=== PATIENT | female | born 1950 | race Caucasian/White ===

== ENCOUNTER → 2016-09-04 | Day surgery (SDC) | payer OTHER, BC ==
[2016-08-27 12:03] VITALS: BMI 33.0
[~2016-09-04] VITALS: Ht 162.6 cm; Wt 88.6 kg
[~2016-09-04] MED LIST: CALC500T83 PO; CHOL1000 PO; ESCI1TAB9 PO; GABA-112 PO; HYDR-5688 PO; LIDOCAINE HCL 2% 2 ML VIAL (20MG/ML) ONE; MIDAZOLAM HCL 1 MG/ML 2ML VIAL ONE; MULT-506 PO; MULT-859 PO; ONDANSETRON INJ 2 MG/ML 2 ML VIAL ONE; PROPOFOL IV EMULSION 10 MG/ML 20 ML VIAL IV ONE
[2016-09-04 14:56] VITALS: Ht 162.6 cm; Wt 88.6 kg
[2016-09-04 15:03] VITALS: TEMP 36.6
--- NOTE | 2016-09-04 15:55 | Endo History and Physical ---
History & Physical Date of Service: Sep 04, 2016. Chief Complaint: Hx colon Ca Referring Physician: Dr. Quinn Agrawal History of Present Illness 66 yo CF who presents for colonoscopy secondary to history of colon cancer. Past Medical History Anxiety, Cancer Past Surgical History Hx Cardiac Surgery: No Hx Internal Defibrillator: No Hx Pacemaker: No Hx Abdominal Surgery: No Hx of Implantable Prosthesis: No Hx Post-Op Nausea and Vomiting: No Hx Cancer Surgery: Yes (COLON TUMOR REMOVAL AND LYMPH NODE REMOVAL) Hx Thoracic Surgery: No Hx Orthopedic: Yes (RT FOOT SURGERY WITH PLATES AND SCREWS) Hx Urinary Tract Surgery: No Family History Polyp, IBD Social History Smoking Status: Never Smoker Hx Substance Use: No Hx Alcohol Use: No Allergies Coded Allergies: Adhesives (Verified Allergy, Unknown, REDNESS WITH TAPE, 09/04/16) NO KNOWN DRUG ALLERGIES (Verified Allergy, Unknown, NONE, 09/04/16) Current Medications Reported Home Medications Medications Dose Route/Sig Max Daily Dose Days Date Category Hair/Skin/Nails/Biotin (Multiple Vitamins W/ Minerals) 1 Tab Tab 1 Tab PO QPM 08/27/16 Reported Vitamin D3 (Cholecalciferol) 1,000 Unit Tab 1 Tab PO QPM 08/27/16 Reported Calcium 500 Mg Tab 1 Tab PO QPM 08/27/16 Reported Neurontin (Gabapentin) 100 Mg Cap 100 Mg PO HS 08/27/16 Reported Multivitamin (Multivitamins) Tab 1 Tab PO QPM 09/11/15 Reported Lexapro (Escitalopram Oxalate) 10 Mg Tab 5 Mg PO QAM 07/20/15 Reported Vital Signs Weight (Kilograms): 88.64 Height (Feet): 5 Height (Inches): 4 Date Time Temp Pulse Resp B/P Pulse Ox O2 Delivery O2 Flow Rate FiO2 09/04/16 15:03 36.6 86 18 137/74 95 Room Air Physical Exam General Appearance: WD/WN, no apparent distress Respiratory/Chest: Auscultation: breath sounds normal Cardiovascular: Heart Auscultation: RRR Abdomen: Bowel Sounds: normal Inspection & Palpation: soft, non-distended, no tenderness, guarding & rebound Assessment and Plan Assessment: 66 yo CF who presents for colonoscopy secondary to history of colon cancer. Plan: Proceed with colonoscopy.
--- NOTE | 2016-09-04 16:19 | GI REPORT ---
Procedure Date: 09/04/2016 3:53 PM Procedure: Colonoscopy Indications: High risk colon cancer surveillance: Personal history of colon cancer Medicines: Monitored Anesthesia Care Complications: No immediate complications. Estimated Blood Loss: Estimated blood loss: none. Procedure: Pre-Anesthesia Assessment: - Prior to the procedure, a History and Physical was performed, and patient medications and allergies were reviewed. The patient's tolerance of previous anesthesia was also reviewed. The risks and benefits of the procedure and the sedation options and risks were discussed with the patient. All questions were answered, and informed consent was obtained. Prior Anticoagulants: The patient has taken no previous anticoagulant or antiplatelet agents. ASA Grade Assessment: II - A patient with mild systemic disease. After reviewing the risks and benefits, the patient was deemed in satisfactory condition to undergo the procedure. After I obtained informed consent, the scope was passed under direct vision. Throughout the procedure, the patient's blood pressure, pulse, and oxygen saturations were monitored continuously. The scope was introduced through the anus and advanced to the terminal ileum. The colonoscopy was performed without difficulty. The patient tolerated the procedure well. The quality of the bowel preparation was good. The terminal ileum, ileocecal valve, appendiceal orifice, and rectum were photographed. Findings: Scattered small-mouthed diverticula were found in the entire colon. Non-bleeding internal hemorrhoids were found during retroflexion. The hemorrhoids were small. Impression: - Diverticulosis in the entire examined colon. - Non-bleeding internal hemorrhoids. - No specimens collected. Recommendation: - Resume previous diet. - Continue present medications. - Repeat colonoscopy in 3 years for surveillance. - Return to primary care physician as previously scheduled. Jalen Tobin, 09/04/2016 4:17:45 PM This report has been signed electronically. Note Initiated On: 09/04/2016 3:53 PM
--- NOTE | 2016-09-04 16:19 | Discharge Instructions ---
Endoscopy Patient Instructions Date / Procedure(s) Performed Sep 04, 2016. Colonoscopy Allergy Information Coded Allergies: Adhesives (Verified Allergy, Unknown, REDNESS WITH TAPE, 09/04/16) NO KNOWN DRUG ALLERGIES (Verified Allergy, Unknown, NONE, 09/04/16) Discharge Date / Findings Sep 04, 2016. Diverticulosis Internal hemorrhoids Medication Instructions OK to resume all medications today as prescribed. Reported Home Medications Medications Dose Route/Sig Max Daily Dose Days Date Category Hair/Skin/Nails/Biotin (Multiple Vitamins W/ Minerals) 1 Tab Tab 1 Tab PO QPM 08/27/16 Reported Vitamin D3 (Cholecalciferol) 1,000 Unit Tab 1 Tab PO QPM 08/27/16 Reported Calcium 500 Mg Tab 1 Tab PO QPM 08/27/16 Reported Neurontin (Gabapentin) 100 Mg Cap 100 Mg PO HS 08/27/16 Reported Multivitamin (Multivitamins) Tab 1 Tab PO QPM 09/11/15 Reported Lexapro (Escitalopram Oxalate) 10 Mg Tab 5 Mg PO QAM 07/20/15 Reported Provider Instructions Activity Restrictions - No exercising or heavy lifting for 24 hours. - Do not drink alcohol the day of the procedure. - Do not drive a car or operate machinery until the day after the procedure. - Do not make any important decisions or sign important papers in 24 hours after the procedure. Following Day: - Return to full activity which may include returning to work/school. Diet Start your diet with liquids and light foods (jello, soup, juice, toast). Then eat your usual diet if not nauseated. Treatment For Common After Affects For mild abdominal pain, bloating, or excessive gas: - Rest - Eat lightly - Lie on right side Follow-Up Information Follow-up with Dr. Quinn Agrawal as scheduled Anesthesia Information What You Should Know You have had a procedure that required some medicine to reduce anxiety and discomfort. This treatment is called moderate sedation. After receiving the treatment, you may be sleepy, but you will be able to breathe on your own. The effects of the treatment may last for several hours. Follow these instructions along with Activity/Diet recommendations noted above: * Do NOT do anything where dizziness or clumsiness would be dangerous. * Rest quietly at home today, then you can be up and about tomorrow. * Have a responsible person stay with you the rest of today. * You may have had an I.V. today. If so, you may take the dressing off later today. Recommendations Call your doctor if: * Trouble breathing * Continuous vomiting for more than 24 hours * Temperature above 101 degrees * Severe abdominal pain or bloating * Pain not relieved by pain medicine ordered * There is increased drainage or redness from any incision * A large amount of rectal bleeding greater than 2-3 tablespoons. (If you had a polyp/s removed or have hemorrhoids, a small amount of blood - from the rectum is to be expected.) * You have any unanswered questions or concerns. IN THE EVENT OF A SERIOUS EMERGENCY, GO TO THE NEAREST EMERGENCY ROOM Your discharge instructions were prepared by provider Jalen Tobin. Patient Instructions Signature Page Chiquita Nix Patient (or Guardian) Signature/Date: I have read and understand the instructions given to me by my caregivers. Caregiver/RN/Doctor Signature/Date: The above-named patient and/or guardian has received patient instructions on this date. + Original Patient Signature Page (only) stays with chart. Please make copy for patient.
[2016-09-04 16:45] VITALS: BP 138/76; PULSE 86; O2SAT 93
--- NOTE | 2016-09-04 17:01 | Anesthesiology Progress Note ---
Anesthesia Post Op Note Date & Time Sep 04, 2016 at 17:00 Vital Signs Pain Intensity: 0 Vital Signs Past 12 Hours Date Time Temp Pulse Resp B/P Pulse Ox O2 Delivery O2 Flow Rate FiO2 09/04/16 16:45 86 16 138/76 93 Room Air 09/04/16 16:30 93 16 132/75 94 Room Air 09/04/16 16:15 104 16 116/68 93 Room Air 09/04/16 15:03 36.6 86 18 137/74 95 Room Air Notes Mental Status: alert / awake / arousable, participated in evaluation Pt Amnestic to Procedure: Yes Nausea / Vomiting: adequately controlled Pain: adequately controlled Airway Patency, RR, SpO2: stable & adequate BP & HR: stable & adequate Hydration State: stable & adequate Anesthetic Complications: no major complications apparent
== END | disposition home or self-care (01) ==
LOC: C.GI 14:44
PROVIDERS: ATTEND Internal Medicine
DX: Z12.11 Encounter for screening for malignant neoplasm of colon (principal); Z85.038 Personal history of other malignant neoplasm of large intestine; K57.90 Diverticulosis of intestine, part unspecified, without perforation or abscess without bleeding; K64.8 Other hemorrhoids; Z98.890 Other specified postprocedural states; Z68.33 Body mass index [BMI] 33.0-33.9, adult; Z83.71 Family history of colonic polyps

== ENCOUNTER → 2016-09-10 | Day surgery (SDC) | payer OTHER, BC ==
[2016-08-27 12:13] VITALS: Ht 162.6 cm; Wt 88.6 kg
[~2016-09-10] VITALS: Ht 162.6 cm; Wt 88.6 kg
[~2016-09-10] MED LIST changes: +ATROPINE SULFATE 0.1 MG/ML 5ML SYR IV PRN; +CEFAZOLIN 2000 MG/60 ML D5W IV SCH; +EpHEDrine SULFATE INJ 50 MG/ML AMP IV PRN; +FENTANYL CITRATE INJ 50 MCG/1 ML 2 ML VIAL IV PRN; +FENTANYL CITRATE INJ 50 MCG/1 ML 2 ML VIAL ONE; +HYDROCODONE/ACETAMOPHEN 5/325MG TAB PO PRN; +LACTATED RINGER'S 1000ML 1,000 ML IV SCH; +LACTATED RINGER'S 1000ML 500 ML IV ONE; +LIDOCAINE HCL 1% 20 ML VIAL ONE; +ONDANSETRON INJ 2 MG/ML 2 ML VIAL IV PRN; -ONDANSETRON INJ 2 MG/ML 2 ML VIAL ONE; +SODIUM CHLORIDE 0.9% 1000ML 1,000 ML IV SCH
--- NOTE | 2016-09-10 12:06 | [facility] Operative Report ---
Operative Report Operative Date Sep 10, 2016. Pre-Operative Diagnosis History of Colon Cancer Post-Operative Diagnosis same Procedure(s) Performed port removal Surgeon Dr Agrawal Global Sales Director Surgeon(s) None Estimated Blood Loss 5ml Findings port Specimens A: Explanted A-Port Anesthesia local/ sedation Complication(s) None Disposition Surgical ICU I attest to the content of the Intraoperative Record and any orders documented therein. Any exceptions are noted below.
[2016-09-10 12:10] VITALS: TEMP 36.7
--- NOTE | 2016-09-10 12:12 | Discharge Instructions-SurgCtr ---
Discharge Instructions Visit Reason for Visit: History Of Colon Cancer, Pre-Op Z01.810 Discharge Discharge Diagnosis / Problem: history of colon cancer , port Discharge Goals Goal(s): Decrease discomfort, Improve function, Improve disease control Activity Recommendations Activity Limitations: as noted below Lifting Limitations: gradually increase as tolerated Exercise/Sports Limitations: until after follow-up appointment May Resume Sexual Activity: when tolerated Shower/Bathe: tomorrow Driving or Machine Use: resume 1 day after discharge SPECIAL CARE INSTRUCTIONS: * Cover incisions and change daily for comfort/drainage. * May use ibuprofen for pain as tolerated. * Expect some swelling and bruising. Call your doctor if: * Temperature above 101 degrees * Pain not relieved by pain medicine ordered * There is increased drainage or redness from any incision * You have any unanswered questions or concerns [phone]. FOLLOW UP VISIT: If not already scheduled, please call the office for a follow-up visit. for 2 weeks- [facility] OFFICE PHONE NUMBER: Dr. Agrawal Office Anesthesia . Post Anesthesia Instructions: If you have had General Anesthesia or IV Sedation: * Do not drive today. * Resume driving when surgeon permits. * Do not make important decisions or sign legal documents today. * Call surgeon for: 1. Temperature elevations greater than 101 degrees F. 2. Uncontrollable pain. 3. Excessive bleeding. 4. Persistent nausea and vomiting. 5. Medication intolerance (nausea, vomiting or rash). * For nausea and vomiting use only clear liquids such as: tea, soda, bouillon until nausea subsides, then gradually increase diet as tolerated. * If you have any concerns or questions, call your surgeon's office. If physician is unavailable and it is an emergency, call 911 or go to the nearest emergency room. . Diet Recommendations Home Diet: resume previous diet Procedures Procedures Performed: Removal Of A-port Pending Studies Studies pending at discharge: no Medical Emergencies . Who to Call and When: Medical Emergencies: If at any time you feel your situation is an emergency, please call 911 immediately. . Non-Emergent Contact Non-Emergency issues call your: Surgeon . . "Provider Documentation" section prepared by Brady Agrawal.
--- NOTE | 2016-09-10 12:21 | Anesthesia Progress Nt - [facility] ---
Anesthesia Post Op Note Date & Time Sep 10, 2016 at 12:20 Vital Signs Pain Intensity: 0 Vital Signs Past 12 Hours Date Time Temp Pulse Resp B/P Pulse Ox O2 Delivery O2 Flow Rate FiO2 09/10/16 12:10 36.7 86 14 103/69 92 Room Air 09/10/16 10:37 37.3 88 16 153/76 97 Room Air Notes Mental Status: alert / awake / arousable, participated in evaluation Pt Amnestic to Procedure: Yes Nausea / Vomiting: adequately controlled Pain: adequately controlled Airway Patency, RR, SpO2: stable & adequate BP & HR: stable & adequate Hydration State: stable & adequate Anesthetic Complications: no major complications apparent
[2016-09-10 12:31] VITALS: BP 127/85; PULSE 85; O2SAT 94
--- NOTE | 2016-09-10 13:16 | OPERATIVE REPORT ---
DATE OF OPERATION: 09/10/2016 NAME OF OPERATION: Port removal. PREOPERATIVE DIAGNOSIS: Access port. POSTOPERATIVE DIAGNOSIS: Same. STAFF SURGEON: Dr. Agrawal. ANESTHESIA: 1% plain lidocaine with sedation. DESCRIPTION OF PROCEDURE: The patient was brought in the operating room and placed on the operating table in supine position. Her left chest was prepped and draped in usual fashion. Using 1% plain lidocaine, skin and subcutaneous tissue were anesthetized. Incision made carrying dissection down relatively deep, identifying the port, dissecting it from the pocket and then removing the catheter, oversewing the tunnel using 2-0 chromic catgut suture then the deep tissue reapproximated using 2-0 plain catgut suture, then the skin reapproximated using 4-0 nylon suture. The patient was transferred to recovery room in stable condition. I attest to the content of the Intraoperative Record and any orders documented therein. Any exceptio ns are noted below.
== END | disposition home or self-care (01) ==
LOC: X.SURG 10:28
PROVIDERS: ATTEND Surgery
DX: Z45.2 Encounter for adjustment and management of vascular access device (principal); I82.621 Acute embolism and thrombosis of deep veins of right upper extremity; E78.5 Hyperlipidemia, unspecified; K58.9 Irritable bowel syndrome, unspecified; D25.9 Leiomyoma of uterus, unspecified; R39.9 Unspecified symptoms and signs involving the genitourinary system; E55.9 Vitamin D deficiency, unspecified; Z98.890 Other specified postprocedural states

== ENCOUNTER → 2016-10-10 | Outpatient (CLI) | payer OTHER, BC ==
[~2016-10-10] MED LIST changes: -ATROPINE SULFATE 0.1 MG/ML 5ML SYR IV PRN; -CEFAZOLIN 2000 MG/60 ML D5W IV SCH; -EpHEDrine SULFATE INJ 50 MG/ML AMP IV PRN; -FENTANYL CITRATE INJ 50 MCG/1 ML 2 ML VIAL IV PRN; -FENTANYL CITRATE INJ 50 MCG/1 ML 2 ML VIAL ONE; -HYDROCODONE/ACETAMOPHEN 5/325MG TAB PO PRN; -LACTATED RINGER'S 1000ML 1,000 ML IV SCH; -LACTATED RINGER'S 1000ML 500 ML IV ONE; -LIDOCAINE HCL 1% 20 ML VIAL ONE; -LIDOCAINE HCL 2% 2 ML VIAL (20MG/ML) ONE; -MIDAZOLAM HCL 1 MG/ML 2ML VIAL ONE; -ONDANSETRON INJ 2 MG/ML 2 ML VIAL IV PRN; -PROPOFOL IV EMULSION 10 MG/ML 20 ML VIAL IV ONE; -SODIUM CHLORIDE 0.9% 1000ML 1,000 ML IV SCH
--- NOTE | 2016-10-10 13:25 | MAMMOGRAPHY REPORT ---
BILATERAL DIGITAL SCREENING MAMMOGRAM WITH CAD: 10/10/2016 CLINICAL HISTORY: Routine screening. Patient has no complaints. TECHNIQUE: Current study was also evaluated with a Computer Aided Detection (CAD) system. Bilatera l CC and MLO views were obtained. COMPARISON: Comparison is made to exams dated: 10/09/2015 mammogram, 10/06/2013 mammogram, 10/07/2014 mammogram, 10/05/2012 mammogram, 10/04/2011 mammogram, and 10/03/2010 mammogram - [facility]. BREAST COMPOSITION: The tissue of both breasts is heterogeneously dense, which may obscure small ma sses. FINDINGS: No suspicious masses, calcifications, or areas of architectural distortion are noted in e ither breast. There has been no significant interval change compared to prior exams. IMPRESSION: ACR BI-RADS CATEGORY 1: NEGATIVE There is no mammographic evidence of malignancy. A 1 year screening mammogram is recommended. The p atient will receive written notification of the results. Approximately 10% of breast cancers are not detected with mammography. A negative mammographic repor t should not delay biopsy if a clinically suggestive mass is present. Heather Del Real M.D. /:10/10/2016 12:41:14 Automatic Glove Turner And Former: Kristina MONDRAGON(R)(M), [facility] letter sent: Normal 1/2 BI-RADS Code: ACR BI-RADS Category 1: Negative
== END | disposition home or self-care (01) ==
LOC: C.MAMM 10:01
PROVIDERS: ATTEND Obstetrics & Gynecology
DX: Z12.31 Encounter for screening mammogram for malignant neoplasm of breast (principal)

== ENCOUNTER → 2017-02-12 | Outpatient (CLI) | payer OTHER, BC ==
[~2017-02-12] MED LIST changes: +OPTIRAY 320 IV PRN
--- NOTE | 2017-02-12 16:12 | DIAGNOSTIC IMAGING REPORT ---
CT SCAN OF THE CHEST, ABDOMEN, AND PELVIS WITH IV CONTRAST CLINICAL HISTORY: Colon cancer. COMPARISON STUDY: Chest CT scans dated 04/17/2015 and 08/05/2016. Abdominal CT dated 06/28/2016. TECHNIQUE: Following the IV administration of 119 of Optiray 320, CT scan of the chest, abdomen, and pelvis was performed from the thoracic inlet to the proximal femora. Images are reviewed in the axial, sagittal, and coronal planes. IV contrast was administered without complication. Automated dose control exposure was utilized. CT DOSE: 1483.59 mGy.cm FINDINGS: CHEST: Thyroid: Imaged portions of the thyroid gland are normal in size and attenuation. Thoracic aorta: There is mild atherosclerotic calcification of the thoracic aorta, which is normal in caliber and demonstrates standard 3-vessel arch anatomy. No dissection is seen. Pulmonary vasculature: The pulmonary trunk is dilated, measuring 3.7 cm in diameter. This suggests pulmonary artery hypertension. There are no filling defects identified in the central pulmonary vessels to indicate pulmonary was. Note that this examination was not protocoled for evaluation of the pulmonary arteries. Heart: The heart is normal in size and configuration, and without pericardial effusion. Lungs and pleural spaces: There is no airspace consolidation or pleural effusion. The trachea and central airways are clear. There is an 11 mm pleural-based nodule in the superior segment of the left lower lobe seen on image #87. This has not appreciably changed dating back to 04/27/2015. No new pulmonary lesion is identified. Mediastinum: There is no mediastinal lymphadenopathy. Sabrina: Clear. Axillae: There is no axillary lymphadenopathy. Bony thorax: The skeletal structures are osteopenic. Degenerative change is noted throughout the thoracic spine. No lytic or blastic lesions are identified. ABDOMEN AND PELVIS: Liver: The contrast-enhanced liver is enlarged, measuring 20 cm in length. The liver demonstrates diffusely diminished attenuation consistent with hepatic steatosis. There is no intrahepatic or ductal dilatation. The hepatic veins and portal veins are patent. Gallbladder: Unremarkable. Spleen: Normal in size and attenuation. Pancreas: Unremarkable. Adrenal glands: Unremarkable. Kidneys: The contrast enhanced kidneys are normal in size and without hydronephrosis. The kidneys enhance symmetrically. There is a 3 mm nonobstructing calculus in the left lower pole. A 1.6 cm cyst arises from the interpolar left kidney. Additional subcentimeter cortical hypodensities also likely represent cysts but are too small for definitive characterization. Abdominal vasculature: The abdominal aorta is normal in course and caliber noting mild to moderate atherosclerotic calcification. Bowel: There are postoperative changes from left-sided colonic resection below the splenic flexure with colocolonic anastomosis. No bowel obstruction is seen. There is moderate sigmoid diverticulosis without CT evidence of acute diverticulitis. The appendix is well-visualized and normal. Peritoneum: There is no intraperitoneal free air or abdominal ascites. Lymphadenopathy: None. Pelvic viscera: There are large and partially calcified uterine masses, typical in appearance for fibroids. The bladder is decompressed and grossly unremarkable. No adnexal lesion is seen. Skeletal structures: The skeletal structures are osteopenic. There is mild lumbosacral spondylosis. No lytic or blastic lesions are seen. IMPRESSION: 1. There is no evidence of metastatic disease in the chest, abdomen, or pelvis. 2. There are postoperative changes from partial left colon resection with colocolonic anastomosis. No bowel obstruction is seen. 3. There is unchanged appearance of an 11 mm nodule in the superior segment of the left lower lobe. This as not significantly changed dating back to 04/27/2015 and the appearance is not typical for metastatic disease. A slow-growing neoplasm such as carcinoid tumor remains within the differential. Consider thoracic surgical consultation. 4. Moderate sigmoid diverticulosis without CT evidence of acute diverticulitis. 5. Hepatomegaly and hepatic steatosis. 6. There is no airspace consolidation or pleural effusion. 7. Small nonobstructing left renal calculus. 8. Fibroid uterus. 9. Additional findings as above. Electronically signed by: Carlos Arenas M.D. 02/12/2017 4:11 PM Dictated Date/Time: 02/12/2017 4:01 PM
== END | disposition home or self-care (01) ==
LOC: C.CTS 15:31
PROVIDERS: ATTEND Internal Medicine Hematology & Oncology
DX: C18.5 Malignant neoplasm of splenic flexure (principal); R91.1 Solitary pulmonary nodule; K57.30 Diverticulosis of large intestine without perforation or abscess without bleeding; R16.0 Hepatomegaly, not elsewhere classified; K76.0 Fatty (change of) liver, not elsewhere classified; N20.0 Calculus of kidney; D25.9 Leiomyoma of uterus, unspecified

== ENCOUNTER → 2017-04-25 | Outpatient (CLI) | payer OTHER, BC ==
[~2017-04-25] MED LIST changes: -HYDR-5688 PO; -OPTIRAY 320 IV PRN
[2017-04-25 17:12] LABS: URINE APPEARANCE TURBID (CLEAR); URINE BILIRUBIN NEG (NEG); URINE COLOR YELLOW; URINE EPITHELIAL CELL AUTO 0-5 /lpf (0-5); URINE NITRITE NEG (NEG); URINE SPECIFIC GRAVITY 1.031 (1.000-1.030); UROBILINOGEN NEG (NEG)
[2017-04-25 17:13] LABS: MANUAL MICROSCOPIC REQUIRED? NO; REVIEW REQ? NO
== END | disposition home or self-care (01) ==
LOC: C.LABBC 14:55
PROVIDERS: ATTEND Physician Assistant Medical
DX: R39.9 Unspecified symptoms and signs involving the genitourinary system (principal)

== ENCOUNTER → 2017-06-04 | Outpatient (CLI) | payer OTHER, BC ==
--- NOTE | 2017-06-04 12:32 | DIAGNOSTIC IMAGING REPORT ---
CHEST 2 VIEWS ROUTINE CLINICAL HISTORY: R06.02 Mild shortness of [id number] dyspnea COMPARISON STUDY: 08/05/2016 CT chest 02/12/2017 FINDINGS: Unchanging 9 mm nodule left midlung. Lungs otherwise are clear. Diaphragms are smooth. Costophrenic angles are sharp. IMPRESSION: Chronic change. No acute process. The above report was generated using voice recognition software. It may contain grammatical, syntax or spelling errors. Electronically signed by: Dilip Gilmore M.D. 06/04/2017 12:30 PM Dictated Date/Time: 06/04/2017 12:28 PM
== END | disposition home or self-care (01) ==
LOC: C.RAD1850 12:04
PROVIDERS: ATTEND Nurse Practitioner Adult Health
DX: R06.02 Shortness of breath (principal)

== ENCOUNTER → 2017-08-25 | Outpatient (CLI) | payer OTHER, BC ==
[2017-08-25 12:49] LABS: ALBUMIN 3.9 gm/dl (3.4-5.0); ALT/SGPT 30 U/L (12-78); AST/SGOT 17 U/L (15-37); BLOOD UREA NITROGEN 11 mg/dl (7-18); CARBON DIOXIDE 26 mmol/L (21-32); CREATININE 0.72 mg/dl (0.60-1.20); GLUCOSE 123 mg/dl (70-99); POTASSIUM 3.7 mmol/L (3.5-5.1); SODIUM 138 mmol/L (136-145)
[2017-08-25 13:00] LABS: ALKALINE PHOSPHATASE 86 U/L (45-117); BASO % 0.4 %; BASO ABS # 0.03 K/uL (0-0.2); CHOLESTEROL 223 mg/dl (0-200); EOS % 4.3 %; EOS ABS # 0.29 K/uL (0-0.5); HEMATOCRIT 41.5 % (37-47); HEMOGLOBIN 13.9 g/dL (12.0-16.0); IG# 0.01 K/uL (0.00-0.02); LDL CHOLESTEROL CALCULATED 126 mg/dl; LYMPH % 40.7 %; LYMPH ABS # 2.73 K/uL (1.2-3.4); MEAN CELL VOLUME 88.5 fL (80-100); MEAN CORPUSCULAR HEMOGLOBIN 29.6 pg (25-34); MEAN CORPUSCULAR HGB CONC 33.5 g/dl (32-36); MEAN PLATELET VOLUME 10.8 fL (7.4-10.4); MONO ABS # 0.67 K/uL (0.11-0.59); NEUT % 44.5 %; NEUT ABS # 2.97 K/uL (1.4-6.5); PLATELET COUNT 217 K/uL (130-400); RED CELL DISTRIBUTION WIDTH CV 12.8 % (11.5-14.5); RED CELL DISTRIBUTION WIDTH SD 41.1 fL (36.4-46.3); TOTAL PROTEIN 7.2 gm/dl (6.4-8.2)
[2017-08-25 13:22] LABS: CARCINOEMBRYONIC ANTIGEN 2.2 ng/ml (0-2.5)
== END | disposition home or self-care (01) ==
LOC: C.LAB1850 11:09
PROVIDERS: ATTEND Internal Medicine Geriatric Medicine
DX: R73.9 Hyperglycemia, unspecified (principal); Z85.038 Personal history of other malignant neoplasm of large intestine; R06.09 Other forms of dyspnea; M06.4 Inflammatory polyarthropathy; G62.9 Polyneuropathy, unspecified; E78.5 Hyperlipidemia, unspecified

== ENCOUNTER → 2017-10-27 | Outpatient (CLI) | payer OTHER, BC ==
--- NOTE | 2017-10-31 11:58 | POLYSOMNOGRAPH REPORT ---
CLINICAL DATA: A 67-year-old female with a BMI of [address] Jed Agrawal with history of daytime somnolence and snoring. Her [place] sleepiness score was 12/24. On the evening of 10/27/2017, a home sleep apnea test was performed using a [employer] type 3 monitor. RECORDING RESULTS: Total recording time was 10 hours. The patient's monitoring time and estimated sleep time was 9.2 hours. RESPIRATORY DATA: Mild sleep apnea was documented. The GIFTY was 9. There were 12 obstructive, 1 mixed, and 1 central apneic episode. There were 69 hypopneic episodes. The longest respiratory event was 56 seconds. OXIMETRY DATA: Nocturnal hypoxemia was seen. Oxygen celeste was 62%. Mean saturation was 89%. Time below 89% was 104 minutes. HEART RATE DATA: Heart rates ranged from 42-77 beats per minute. SNORING DATA: Snoring was recorded throughout the night. IMPRESSION: Mild sleep apnea/hypopnea with an GIFTY of 9 with significant nocturnal hypoxemia with an oxygen celeste of 62%. RECOMMENDATIONS: The patient may benefit from use of an oral appliance or repeat sleep study with CPAP. Sleep medicine consultation may be of benefit. Clinical correlation is needed. [facility]
== END | disposition home or self-care (01) ==
LOC: C.NEUR 09:11
PROVIDERS: ATTEND Internal Medicine Geriatric Medicine
DX: R40.0 Somnolence (principal); R53.83 Other fatigue; R09.02 Hypoxemia; Z68.35 Body mass index [BMI] 35.0-35.9, adult; R06.09 Other forms of dyspnea; Z85.038 Personal history of other malignant neoplasm of large intestine; R73.9 Hyperglycemia, unspecified; G62.9 Polyneuropathy, unspecified; M06.4 Inflammatory polyarthropathy; G47.00 Insomnia, unspecified

== ENCOUNTER → 2017-10-28 | Outpatient (CLI) | payer OTHER, BC ==
--- NOTE | 2017-10-28 14:58 | MAMMOGRAPHY REPORT ---
BILATERAL DIGITAL SCREENING MAMMOGRAM TOMOSYNTHESIS WITH CAD: 10/28/2017 CLINICAL HISTORY: Routine screening. Patient has no complaints. TECHNIQUE: Breast tomosynthesis in addition to standard 2D mammography was performed. Current study was also evaluated with a Computer Aided Detection (CAD) system. COMPARISON: Comparison is made to exams dated: 10/10/2016 mammogram, 10/09/2015 mammogram, 10/07/2014 ma mmogram, 10/06/2013 mammogram, 10/05/2012 mammogram, and 10/04/2011 mammogram - [facility]ter. BREAST COMPOSITION: The tissue of both breasts is heterogeneously dense, which may obscure small mas ses. FINDINGS: There is a new small 5 mm spiculated mass with associated faint calcifications seen within the left 12:00 breast, for which spot magnification views and breast ultrasound are recommended for f urther evaluation. The remainder of both breasts are stable compared to prior exams, without suspicious masses, calcific ations, or areas of architectural distortion noted. Other scattered bilateral benign-appearing calci fications are not significantly changed. Asymmetry seen within the right upper outer quadrant is sta ble compared to multiple prior exams. IMPRESSION: ACR BI-RADS CATEGORY 0: INCOMPLETE EVALUATION: NEED ADDITIONAL IMAGING EVALUATION Left breast mass and associated calcifications, for which additional imaging evaluation is recommende d. The patient will be called to schedule an appointment. Approximately 10% of breast cancers are not detected with mammography. A negative mammographic report should not delay biopsy if a clinically suggestive mass is present. Heather Del Real M.D. /:10/28/2017 12:31:42 Lumber Loader: Rhona DEVRIES)(Whitney), [facility] letter sent: Addl Imaging 0 BI-RADS Code: ACR BI-RADS Category 0: Incomplete Evaluation: Need Additional Imaging Evaluation
== END | disposition home or self-care (01) ==
LOC: C.MAMM 11:44
PROVIDERS: ATTEND Obstetrics & Gynecology
DX: Z12.31 Encounter for screening mammogram for malignant neoplasm of breast (principal); R92.1 Mammographic calcification found on diagnostic imaging of breast

== ENCOUNTER → 2017-10-31 | Outpatient (CLI) | payer OTHER, BC ==
--- NOTE | 2017-11-03 12:44 | MAMMOGRAPHY REPORT ---
UNILATERAL LEFT DIGITAL DIAGNOSTIC MAMMOGRAM AND TARGETED LEFT ULTRASOUND: 10/31/2017 CLINICAL HISTORY: Callback from screening mammogram for left breast mass and calcifications. TECHNIQUE: Spot magnification left CC and ML views were obtained. COMPARISON: Comparison is made to exams dated: 10/31/2017 ultrasound, 10/28/2017 mammogram, 10/10/2016 m ammogram, 10/09/2015 mammogram, 10/07/2014 mammogram, and 10/06/2013 mammogram - [facility]. BREAST COMPOSITION: There are scattered areas of fibroglandular density in the left breast. FINDINGS: Spot magnification views demonstrate a spiculated 5 mm mass within the left superior breast at approximately 12:00. A few faint pleomorphic calcifications are seen within the mass as well as extending approximately 2.2 cm anterior to the mass in a linear distribution. The total extent of th e findings measures 2.8 x 0.7 cm. Targeted ultrasound was performed of the area of the mammographic mass in the left superior breast. In the left breast at approximately 11:00, 9 cm from the nipple, there is a subtle ill-defined hypoec hoic non-circumscribed 3 x 4 x 4 mm mass with associated architectural distortion seen during real-ti me imaging. This corresponds with the mammographic mass and is highly suspicious for malignancy. Re commend ultrasound-guided core needle biopsy for further evaluation. IMPRESSION: ACR BI-RADS CATEGORY 5: HIGHLY SUGGESTIVE OF MALIGNANCY, TARGETED ULTRASOUND ACR BI-RADS CATEGORY 5: HIGHLY SUGGESTIVE OF MALIGNANCY Hypoechoic 4 mm mass in the left 11:00 breast on ultrasound, which corresponds with a new spiculated mass and associated calcifications seen mammographically. Pleomorphic calcifications are also seen e xtending anterior to the mass, with total extent of the finding measuring 2.8 cm. Findings are highl y suspicious and ultrasound-guided core needle biopsy with specimen radiography is recommended for fu rther evaluation. A phone call was made to the physician's office to confirm faxed results were received. The patient has been verbally notified of the results. She tentatively scheduled the biopsy before leaving the [facility] emergency department. Approximately 10% of breast cancers are not detected with mammography. A negative mammographic report should not delay biopsy if a clinically suggestive mass is present. Heather Del Real M.D. /:10/31/2017 11:47:52 Abseiling Instructor: Tiago MONDRAGON(R)(M), [facility] letter sent: Abnormal / BI-RADS Code: ACR BI-RADS Category 5: Highly Suggestive Of Malignancy Ultrasound BI-RADS: ACR BI-RAD S Category 5: Highly Suggestive Of Malignancy
== END | disposition home or self-care (01) ==
LOC: C.MAMM 10:23
PROVIDERS: ATTEND Obstetrics & Gynecology
DX: N63.22 Unspecified lump in the left breast, upper inner quadrant (principal); R92.1 Mammographic calcification found on diagnostic imaging of breast

== ENCOUNTER → 2017-11-04 | Outpatient (CLI) | payer OTHER, BC ==
--- NOTE | 2017-11-04 11:04 | Discharge Instructions ---
Discharge Instructions Procedure Procedure Date: Nov 04, 2017. Reason for visit: Left Mass. Discharge Discharge Date: Nov 04, 2017. Discharge Diagnosis: post left breast ultrasound guided core biopsy Instructions Activity Recommendations: Additional Limitations (see below) Return to School/Work: no limitations Recommended Home Diet: No Limitations Provider Instructions: ACTIVITY RECOMMENDATIONS: * No lifting, pushing, pulling or exercising the affected side for three days. RETURN TO SCHOOL/WORK: * You may return to work/school after the procedure, but do not perform any strenuous activities for 24 to 48 hours. MEDICATIONS: * Tylenol (two 325 mg) every four to six hours if needed for mild pain (if not allergic to Tylenol). DIET: * Resume previous diet. SPECIAL CARE INSTRUCTIONS: * Keep biopsy site dry for 24 hours. May shower after 24 hours, but do not soak (bathe) incision. * May remove Tegaderm (plastic patch) tomorrow AFTER showering. * Leave the steri-strips on for one week. Allow the steri-strips to fall off by themselves. If not off after one week, you may remove them. You may place a Bandaid crosswise over the strips, if desired. * Apply ice 10 minutes on and 10 minutes off as needed. * Wear a bra at bedtime to sleep more comfortably for 2-3 days. * Your referring physician should have the results after approximately 5 to 7 business days. * Call for unusual bleeding, fever, drainage, etc or if you have any questions call [phone] during normal business hours or after hours call Dr Rogel, . FOLLOW UP VISIT: Follow-up with Referring Physician as scheduled. Allergies Coded Allergies: Adhesives (Verified Allergy, Unknown, REDNESS WITH TAPE, 09/10/16) NO KNOWN DRUG ALLERGIES (Verified Allergy, Unknown, NONE, 09/04/16) Mina Arnett Recommendations: Call your doctor if: * Temperature above 101 degrees * Pain not relieved by pain medicine ordered * There is increased drainage or redness from any incision * You have any unanswered questions or concerns. Your Doctors Instructions noted above were prepared by provider Cata Rogel. Patient Signature Section: Patient Instructions Signature Page Chiquita Boyd Patient (or Guardian) Signature/Date: I have read and understand the instructions given to me by my caregivers. Caregiver/RN/Doctor Signature/Date: The above-named patient and/or guardian has received patient instructions on this date. + Original Patient Signature Page (only) stays with chart. Please make copy for patient.
--- NOTE | 2017-11-04 13:03 | MAMMOGRAPHY REPORT ---
ULTRASOUND GUIDED BIOPSY LEFT BREAST: 11/04/2017 CLINICAL HISTORY: 4 mm spiculated mass with associated faint microcalcification extending anteriorly in a linear distribution in the 11:00 posterior left breast. Patient presents for ultrasound-guided core needle biopsy. COMPARISON: Comparison is made to exams dated: 10/31/2017 mammogram, 10/31/2017 ultrasound, and 018 mammogram - [facility]. PATIENT CONSENT: The procedure, risks and benefits were discussed with the patient and informed conse nt was obtained both verbally and in writing. Specific risks to this procedure include: bleeding, in fection, puncture of adjacent structure, nontarget biopsy, sampling error, pain, metal allergy and me dication reaction. PROCEDURE DESCRIPTION: A time out was performed and the left breast was agreed as the site of biopsy. The skin was prepped and draped in the usual sterile fashion. The subtle 4 mm mass with associated a rchitectural distortion in the 11:00 left breast was identified and chosen as the target for biopsy. Subcutaneous and intraparenchymal 1% buffered lidocaine, with and without epinephrine, was administer ed as local anesthesia. A skin incision was made. Through the incision, 4 samples were taken with a 12-gauge Celero biopsy device. A ribbon shaped metallic marker was placed at the biopsy site. One ad ditional core biopsy sample was obtained with a 14-gauge achieve biopsy device. A specimen x-ray was performed of the core biopsy samples and 2 of the samples are noted to contain faint microcalcificat ions, confirming adequate sampling of the microcalcifications within the lesion. Hemostasis was achieved after manual compression. The patient tolerated the procedure well and there was no immediate complication. The samples were sent to the pathology department in 2 appropriately labeled containers, the larger container containing the samples with calcifications. Postprocedure left CC and ML tomosynthesis images were obtained. The biopsy marker clip aligns with the subtle spiculated mass with associated calcification in question. No significant postbiopsy thomas jeremy identified. IMPRESSION: ULTRASOUND GUIDED BIOPSY Status post ultrasound-guided core biopsy of a subtle 4 mm spiculated mass with associated calcificat ion in the 11:00 posterior left breast, with biopsy marker clip placed at the site. The patient will receive notification of the biopsy results from her referring physician. Cata Rogel M.D. ay/:11/04/2017 11:28:39 Rubber Mixer: Kristina MONDRAGON(Lizzy)(Whitney), [facility]
--- NOTE | 2017-11-04 13:03 | MAMMOGRAPHY REPORT ---
UNILATERAL LEFT DIGITAL DIAGNOSTIC MAMMOGRAM TOMOSYNTHESIS: 11/04/2017 CLINICAL HISTORY: Status post ultrasound-guided core biopsy of a subtle area of architectural distort ion and associated calcification in the 11:00 left breast. Please refer to the report from left breast ultrasound-guided core biopsy performed at the same time for full detail. IMPRESSION: POST PROCEDURE IMAGING FOR MARKER PLACEMENT Please refer to the report from left breast ultrasound-guided core biopsy performed at the same time for full detail. Approximately 10% of breast cancers are not detected with mammography. A negative mammographic report should not delay biopsy if a clinically suggestive mass is present. Cata Rogel M.D. ay/:11/04/2017 11:06:12 Structural Welder: Kristina DEVRIES)(M), [facility] BI-RADS Code: Post Procedure Imaging For Marker Placement
--- NOTE | 2017-11-04 13:04 | MAMMOGRAPHY REPORT ---
SPECIMEN: 11/04/2017 CLINICAL HISTORY: Core biopsy sample specimen x-ray to ensure inclusion of microcalcifications in the samples. Please refer to the report from left breast ultrasound-guided core biopsy performed at the same time for full detail. IMPRESSION: SPECIMEN Please refer to the report from left breast ultrasound-guided core biopsy performed at the same time for full detail. Cata Rogel M.D. ay/:11/04/2017 11:25:11 Newsroom Intern: Kristina DEVRIES)(M), [facility]
== END | disposition home or self-care (01) ==
LOC: C.MAMM 10:14
PROVIDERS: ATTEND Obstetrics & Gynecology
DX: N63.20 Unspecified lump in the left breast, unspecified quadrant (principal)

== ENCOUNTER → 2017-11-18 | Outpatient (CLI) | payer OTHER, BC | END | disposition home or self-care (01) | LOC: C.PAPS 14:29 | PROVIDERS: ATTEND Physician Assistant | DX: Z01.419 Encounter for gynecological examination (general) (routine) without abnormal findings (principal) ==

== ENCOUNTER → 2018-03-25 | Outpatient (CLI) | payer OTHER, BC ==
[~2018-03-25] MED LIST changes: +ANAS1TAB7 PO; +CALC1CHW32 PO; -CALC500T83 PO; -CHOL1000 PO; +ESCI10TA17 PO; +ESCI1TAB10 PO; -ESCI1TAB9 PO; -GABA-112 PO; -MULT-506 PO; -MULT-859 PO; +TRMCR515 TOP
[2018-03-25 14:18] VITALS: BP 127/82; PULSE 99; TEMP 36.9; O2SAT 91
--- NOTE | 2018-03-25 16:00 | Radiation Oncology Follow-Up ---
Radiation Oncology Follow-Up Date of Visit Mar 25, 2018. Reason For Visit One-month follow-up and cancer survivorship care plan Radiation Completion Date finised 02-25-2018 Diagnosis (1) Malignant neoplasm of upper-inner quadrant of left breast in female, estrogen receptor positive Status: Acute Onset Date: 11/04/2017 Histology Subtype: Invasive carcinoma Stage: l (A) Permanent Comment: Abnormal left breast mammogram Status post ultrasound-guided core needle biopsy November 04, 2017 Invasive carcinoma, no specific type, ductal if not otherwise specified, grade 1 Estrogen receptor positive, progesterone receptor negative, HER-2/christian negative Breast MRI November 19, 2017 Genetic testing negative Status post lumpectomy and sentinel lymph node biopsy December 19, 2017, multifocal 2 lesions 3.5 and 4 mm Stage pT1a pN0 Status post completion of radiation therapy February 25, 2018. She received 5130 centigrade utilizing hypo-fractionation. Last Edited By: Michelle Lindsey on Mar 09, 2018 15:20 History of Present Illness Ms. Nix is without a family history of breast cancer but a prior history of colon cancer. She was diagnosed 2 years ago with a stage III colon cancer in 2015 treated with a laparotomy with colon resection followed by systemic chemotherapy. She has had no evidence of recurrent colon cancer and continues to be followed by Dr. Desai for this. 10/28/2017. Patient undergoes bilateral digital screening mammogram with tomosynthesis . This study revealed a new small 5 mm spiculated mass with associated faint calcifications seen within the left breast at the 12 o'clock position. Spot magnification views and breast ultrasound were recommended. The remainder of both breasts were unremarkable. 10/31/2017. Patient undergoes unilateral left digital diagnostic mammogram and targeted left breast ultrasound. Spot magnification view demonstrated a spiculated 0.5 cm mass within the left superior breast at the 12 o'clock position. A few faint pleomorphic calcifications are seen within the mass extending approximately 2.2 cm covering an area of 2.8 x 0.7 cm. Targeted ultrasound of the left breast at the 11 o'clock position 9 cm from the nipple revealed a subtle ill-defined hypoechoic non-circumscribed mass measuring 0.3 x 0.4 x 0.4 cm. There was associated architectural distortion corresponding to the mammographic mass. These were highly suspicious for malignancy and was given a BI-RADS Category 5. 11/04/2017. Ultrasound core biopsy of calcifications and area without calcification were performed at the 11 o'clock position of the left breast. This revealed invasive carcinoma NOS with overall grade 1. No lymphovascular invasion was seen. This lesion was estrogen receptor positive, progesterone receptor negative and HER-2/christian negative. The tissue samples without calcifications revealed focal intraductal hyperplasia without tumor seen. Case : [id number]. 11/18/2017. Patient was seen by Dr. Porras, breast surgeon at [facility]. She ordered review of the [facility] slides. Their diagnosis agreed with the original diagnosis. Accession #: [id number]. 11/19/2017. Patient undergoes bilateral breast MRI with and without contrast. In the left breast and irregular mass with irregular margins and heterogeneous enhancement measuring 1.0 x 0.8 cm was seen in the left breast upper inner quadrant at the 11:00 posterior depth. This is consistent with the biopsy- proven well-differentiated invasive ductal carcinoma. There was morphologically abnormal prominent high density left axillary lymph node seen on an outside mammogram and also seen on MRI images. The remainder of the lymph nodes were unremarkable. The right breast and axillary nodes were unremarkable. No other extramammary abnormal findings were appreciated. 11/21/2017. Patient seen by Dr. Acosta for discussion of the role of reconstruction with consideration of bilateral mastectomies. Patient initially rejected the idea of genetic testing but ultimately agreed to genetic testing and was seen by Dr. Katherin Flores. This testing was negative and the patient was no longer considering bilateral breast mastectomies with reconstruction. 12/19/2017. Patient undergoes left breast partial mastectomy and sentinel node biopsy performed by Dr. Porras. One sentinel node was identified and was negative for carcinoma. The partial mastectomy specimen revealed an invasive ductal carcinoma well differentiated that was multifocal. 2 lesions were identified one measuring 3.5 mm and the second measuring 4.0 mm. No DCIS was identified and margins were uninvolved by invasive carcinoma. A single sentinel node was sampled and was negative for metastatic carcinoma. Final staging was a pT1a pN0(sn-), ER positive, MO negative and HER-2/christian negative stage Ib. Accession #: [id number]. 12/29/2017. Patient seen by Dr. Desai for evaluation of the role of adjuvant systemic chemotherapy. He did not feel she was a candidate for systemic chemotherapy recommended adjuvant antiestrogen therapy allowing the completion of her adjuvant radiation. 02/25/2018. Status post completion of radiation therapy. She received 5130 centigrade utilizing hypo-fractionation. 01/15/2018. Patient seen in radiation oncology for discussion of the role of adjuvant radiation. 02/25/2018. Status post completion of radiation therapy. She received 5130 cGy utilizing hypo-fractionation. Interim History She has been doing well over this past month. She had radiation dermatitis especially noted in the upper inner portion of the breast at the end of treatment. She used Silvadene and Aquaphor. This has now healed. There is now darkness to the skin and dryness. She continues to use the aloe vera gel or Eucerin as needed. She is noted no changes to her breast. There have been no masses or tenderness and no change of the axilla. She feels there is some mild swelling at her left wrist. Allergies Coded Allergies: Adhesives (Verified Allergy, Unknown, REDNESS WITH TAPE, 09/10/16) Home Medications Scheduled Anastrozole (Anastrozole), 1 TAB PO DAILY Calcium Phosphate-Cholecalcife (Caltrate Gummy Bites), 2 PIECE PO DAILYBB Escitalopram Oxalate (Lexapro), 20 MG PO DAILY Review of Systems Gastrointestinal: Symptoms: WNL Oral: Symptoms: No Problems Respiratory: Symptoms: WNL Urinary: Symptoms: Nocturia Comments: nocturia times 1 Skin: Symptoms: No Problems Breast: Right Upper Arm Measurement: 34.5 Right Mid Arm Measurement: 28.5 Right Wrist Measurement: 18.1 Left Upper Arm Measurement: 34.5 Left Mid Arm Measurement: 27.5 Left Wrist Measurement: 19.6 Arm Dominence: Right Patient Cosmetic Evaluation: Poor Staff Cosmetic Evalaluation: Fair Additional Notes: She completed a distress management report and answer "no" to all questions. Physical Exam Vital Signs Date Time Temp Pulse Resp B/P (MAP) Pulse Ox O2 Delivery O2 Flow Rate FiO2 03/25/18 14:18 36.9 99 20 127/82 91 ECOG Performance Status: 0 Fatigue: Mild General Appearance: no apparent distress Eyes: normal inspection, EOMI ENT: normal ENT inspection, hearing grossly normal Neck: no adenopathy, thyroid normal Respiratory/Chest: lungs clear, no respiratory distress, no accessory muscle use Breast: Breast examination reveals well-healed incisions of the left breast. There are no masses or tenderness and no axillary adenopathy. There is resolving hyperpigmentation in the upper inner portion of the breast. There are no areas of wet desquamation. Using the Arnold score cosmesis she has a fair outcome. The right breast showed no masses or tenderness and no axillary adenopathy. Cardiovascular: regular rate, rhythm, no gallop, no murmur Extremities: no pedal edema Neurologic/Psychiatric: no motor/sensory deficits, alert, normal mood/affect Skin: warm/dry Pain Management Patient Reports Pain: No Side: Bilateral Patient Preferred Pain Scale: 0 - 10 Initial Pain Intensity: 0.0 Pain Management Plan She denies pain therefore requires no pain management. Laboratory Laboratory Results: not applicable Pathology Pathology Results: were reviewed, and pertinent findings noted in HPI Imaging Imaging Studies: not applicable Assessment & Plan Plan: Continue regular follow-up with her primary care provider, medical oncologist, and breast surgeon. She continues on anastrozole. She can continue [id number] products for skin moisturizing that she has previously used. She has very sensitive skin and knows what products she can use. She will be seeing Dr. Porras in having a mammogram. She is going to call and schedule that appointment. Discussed referral to lymphedema clinic for evaluation treatment and recommendations. She currently would like to wait on the referral. She stated that her arms were measured and Dr. Porras's office. She like to compare her recheck measurements at her next visit. If she does have increasing or new edema she will consider lymphedema referral. We also discussed use of the sleeve when flying or traveling long distances. Today we completed a cancer survivorship care plan. A copy of the document was given to the patient. She was given a survivorship booklet. We asked her to return to our office in 6 months. She may call if she has any questions or concerns in the interim. Total Time In Follow-Up I spent 20 minutes speaking to the patient in performing examination. I spent 20 minutes reviewing information, preparing the survivorship document, and completing this note. Copy To Waldo Porras M.D.; Jed Agrawal M.D.; Alan Echevarria D.O.
== END | disposition home or self-care (01) ==
LOC: C.ONC 14:03
PROVIDERS: ATTEND Physician Assistant Medical
DX: Z08 Encounter for follow-up examination after completed treatment for malignant neoplasm (principal); Z92.3 Personal history of irradiation; Z85.3 Personal history of malignant neoplasm of breast

== ENCOUNTER 2018-10-04 11:43 | Inpatient (IN) ==
[2018-10-04] MEDS ORDERED: ALBUT/IPRATROP 3MG/0.5MG NEB 3 ML VIAL ONE (12:09)
[2018-10-04] MEDS ORDERED: ALBUT/IPRATROP 3MG/0.5MG NEB 3 ML VIAL INH STA ×2 (12:13→12:27)
[2018-10-04] MEDS ORDERED: methylPREDNISolone 125 MG/2 ML VIAL IV STA (12:27)
[2018-10-04] MEDS ORDERED: cefTRIAXone SODIUM 1,000 MG/50 ML BAG IV STA ×2 (12:27→14:04)
[2018-10-04] MEDS ORDERED: SODIUM CHLORIDE 0.9% 1000ML 1,000 ML IV SCH (12:30)
[2018-10-04 12:32] LABS: Basophils # (auto) 0.03 K/uL (0-0.2); Basophils % (auto) 0.6 %; Eosinophils # (auto) 0.38 K/uL (0-0.5); Eosinophils % (auto) 7.4 %; Hematocrit (blood only) 43.4 % (37-47); Hemoglobin 14.6 g/dL (12.0-16.0); Immature Granulocytes # (auto) 0.01 K/uL (0.00-0.02); Immature Granulocytes % (auto) 0.2 %; Lymphocytes # (auto) 2.11 K/uL (1.2-3.4); Mean Corpuscular Hgb Conc 33.6 g/dL (32-36); Mean Corpuscular Volume 87.5 fL (80-100); Mean Platelet Volume 10.5 fL (7.4-10.4); Monocytes # (auto) 0.54 K/uL (0.11-0.59); Monocytes % (auto) 10.5 %; Neutrophils # (auto) 2.08 K/uL (1.4-6.5); Neutrophils % (auto) 40.3 %; Platelet Count 230 K/uL (130-400); RDW Coefficient of Variation 12.8 % (11.5-14.5); RDW Standard Deviation 40.6 fL (36.4-46.3); Red Blood Count 4.96 M/uL (4.2-5.4); White Blood Count 5.15 K/uL (4.8-10.8)
[2018-10-04 12:44] LABS: D Dimer 350 ug/L FEU (0-500); Partial Thromboplastin Ratio 0.9; Partial Thromboplastin Time 25.4 Seconds (21.0-31.0); Prothrombin Time 10.1 Seconds (9.0-12.0)
[2018-10-04 12:46] LABS: Alanine Aminotransferase 48 U/L (12-78); Aspartate Aminotransferase 24 U/L (15-37); BUN Creatinine Ratio 15.3 (10-20); Blood Urea Nitrogen 12 mg/dl (7-18); Carbon Dioxide 25 mmol/L (21-32); Chloride 103 mmol/L (98-107); Creatinine Clr Calc Pharmacy 76.9 ml/min; Est GFR (African American) 91.2; Est GFR (Non-African American) 78.7; Glucose 194 mg/dl (70-99); Potassium 3.8 mmol/L (3.5-5.1); Sodium 138 mmol/L (136-145)
[2018-10-04] MEDS: MAGNESIUM SULFATE / D5W 1 GM/100 ML BAG IV SCH ×2 (12:48→14:46)
[2018-10-04 12:51] LABS: Albumin Globulin Ratio 1.1 (0.9-2); Alkaline Phosphatase 85 U/L (45-117); Bilirubin,Total 0.4 mg/dl (0.2-1); Globulin 3.8 gm/dl (2.5-4.0); Total Protein 7.8 gm/dl (6.4-8.2); Troponin I < 0.015 ng/ml (0-0.045)
[2018-10-04] MEDS ORDERED: KETOROLAC 30 MG/ML VIAL IV STA (12:59)
[2018-10-04] MEDS ORDERED: ACETAMINOPHEN 500 MG TAB PO STA (12:59)
--- NOTE | 2018-10-04 13:16 | XRay Report ---
XR chest 1V portable CLINICAL HISTORY: 68 years-old Female presenting with Shortness of breath. TECHNIQUE: Portable upright AP view of the chest was obtained. COMPARISON: 02/10/2018. FINDINGS: Cardiac silhouette mildly enlarged. Pulmonary basilar prominence. Persistent nodule in the left midlu ng now subcentimeter in apparent size. Hazy bibasilar opacity. Bronchial wall cuffing suggested. No l arge effusion or pneumothorax. Degenerative changes of the thoracic spine. Upper abdomen normal. IMPRESSION: 1. Mild cardiomegaly with volume overload/congestive change. Developing pulmonary edema not excluded . 2. Stable left midlung nodule. Electronically signed by: Carrillo Fletcher M.D. 10/04/2018 1:15 PM
[2018-10-04] MEDS ORDERED: BENZONATATE 100 MG CAPSULE PO ONE (13:32)
[2018-10-04] MEDS ORDERED: DOXYCYCLINE HYCLATE 100 MG CAP PO STA (14:04)
[2018-10-04 15:33] LABS: Influenza B virus by PCR Neg for Influ B (Neg)
[2018-10-04 15:37] LABS: HCO3 ABG 21 mmol/L (19-24); Oxygen Saturation ABG 96.3 % (90-95); PCO2 ABG 36 mmHg (35-46); PO2 ABG 82 mm/Hg (80-95); pH ABG 7.39 (7.35-7.45)
[2018-10-04 15:39] LABS: Allen Test Pos (Pos)
[2018-10-04] MEDS ORDERED: OPTIRAY 320 125ml IV PRN (15:46)
--- NOTE | 2018-10-04 15:58 | CT Scan Report ---
CT angio chest PE protocol CLINICAL HISTORY: 68 years-old Female presenting with shortness of breath, clinical concern for pulmo nary bolus. TECHNIQUE: Multidetector CT angiography of the chest was performed after administration of intravenou s contrast. 3-D volumetric and/or maximum intensity projection (MIP) images were subsequently reconst ructed for review. IV contrast: 97 mL of Optiray 320. One or more dose lowering techniques were used consistent with the principles of ALARA (as low as reasonably achievable), including automatic exposu re control, mA or kV adjustment to individual patient size, and/or use of iterative reconstruction. COMPARISON: Contrast-enhanced CT chest from 01/23/2018. CT DOSE (mGy.cm): The estimated cumulative dose is 624.36 mGy.cm. FINDINGS: Fitness Director topogram: Unremarkable. Pulmonary vasculature: The study is suboptimal for the assessment of the pulmonary vascular tree secondary to timing of the contrast bolus and respiratory motion artifact. Allowing for limited image quality, no central fillin g defect to suggest pulmonary embolus. Main pulmonary artery mildly enlarged measuring 3.5 cm in diam eter. No flattening of the interventricular septum. No intracardiac filling defect. No reflux of cont rast into the hepatic veins. Remaining chest: Soft tissues: Normal thyroid. Surgical clips noted in the superior left breast with associated fluid collection and fat necrosis as well as associated left breast skin thickening. This is consistent wit h lumpectomy and post radiation change. Fat necrosis also evident in the lateral left breast. No axil reji, supraclavicular, internal mammary, mediastinal, or hilar lymphadenopathy. Subcentimeter nonspec ific precarinal and pretracheal lymph nodes. Atherosclerosis of the aorta. Normal heart size. No shamir cardial or pleural effusion. Upper abdomen normal. Lungs and airways: No pneumothorax. Central airways patent. Mild diffuse bronchial wall thickening wi th a lower lobe predominance. Extensive mosaic attenuation. Pulmonary arteries may be mildly enlarged relative to adjacent bronchi. Subsolid 6 mm nodule in the anterior right upper lobe (series 4 image 179), new from prior. Dependent groundglass and reticular opacities at the lung bases likely atelecta sis. Musculoskeletal: Degenerative changes of the spine. IMPRESSION: 1. Allowing for suboptimal image quality, no evidence of pulmonary embolus. 2. Extensive mosaic attenuation and bronchial wall thickening may suggest reactive airways or small airways disease. 3. Subsolid 6 mm nodule in the right upper lobe. Follow-up per Fleischner Society 2017 recommendatio ns below. This was not present on prior exam. 4. Findings may suggest pulmonary arterial hypertension and volume overload. 5. Postsurgical and posttreatment changes of the left breast. Summary of Fleischner Society 2017 Recommendations (H Huy et al. Guidelines for management of i ncidental pulmonary nodules detected on CT images: From the Fleischner Society 2017. Radiology 2017; 284: 228-243.) SOLID NODULES Single nodule; size < 6 mm * Low risk patients: No routine follow-up * High risk patients: Optional CT at 12 months Single nodule; size 6-8 mm * Low risk patients: CT at 6-12 months, then consider CT at 18-24 months * High risk patients: CT at 6-12 months, then at 18-24 months Single nodule; size > 8 mm * Either low or high risk patients: Considered CT at 3 months, PET/CT, or tissue sampling Multiple nodules; size < 6 mm * Low risk patients: No routine follow up * High risk patients: Optional CT at 12 months Multiple nodules; size 6-8 mm * Low risk patients: CT at 3-6 months, then consider CT at 18-24 months * High risk patients: CT at 3-6 months, then at 18-24 months Multiple nodules; size > 8 mm * Low risk patients: CT at 3-6 months, then consider at 18-24 months * High risk patients: CT at 3-6 months, then at 18-24 months SUBSOLID NODULES Single ground-glass nodule * Nodule size < 6 mm: No routine follow-up * Nodule size > or = 6 mm: CT at 6-12 months to confirm persistence, then CT every 2 years until 5 y ears Single part-solid nodule * Nodule size < 6 mm: No routine follow-up * Nodules size > or = 6 mm: CT at 3-6 months to confirm persistence. If unchanged and solid componen t remains < 6 mm, annual CT should be performed for 5 years Multiple nodules * Nodule size < 6 mm: CT at 3-6 months. If stable, consider CT at 2 and 4 years. * Nodules size > or = 6 mm: CT at 3-6 months. Subsequent management based on the most suspicious nod ule(s) NOTE: 1) These guidelines apply to incidental nodules. These guidelines do NOT apply to patients younger th an 35 years, immunocompromised patients, or patients with cancer. 2) Risk categories: * Low risk patients: Minimal or absent history of smoking and/or other known risk factors * High risk patients: History of smoking, exposure to other carcinogens, emphysema, fibrosis, upper lobe location, family history of lung cancer, etc. 3) If a nodule up to 8 mm is partly solid or is ground glass, further follow-up is required after 24 months to exclude possible slow growing adenocarcinoma. Electronically signed by: Carrillo Fletcher M.D. 10/04/2018 3:57 PM
[2018-10-04] MEDS ORDERED: ACETAMINOPHEN 325 MG TAB PO PRN (18:40)
[2018-10-04] MEDS ORDERED: ONDANSETRON INJ 2 MG/ML 2 ML VIAL IV PRN (18:40)
[2018-10-04] MEDS ORDERED: levoFLOXacin 750 MG TAB PO ONE (18:40)
[2018-10-04] MEDS ORDERED: POLYETHYLENE (MIRALAX) 17 GM PACK PO PRN (18:40)
--- NOTE | 2018-10-04 18:54 | History & Physical Report ---
Date of Service October 04, 2018 Assessment & Plan (1) Influenza: was negative 5 days ago, likely a false negative at this point it is well out from 48 hours from onset of symptoms however, will treat with Tamiflu to make her less contagious and because she has some respiratory failure (2) Acute respiratory failure with hypoxia: due to Flu A and bronchial pneumonia treat with Tamiflu, nebulizers, Levaquin (3) Bronchial pneumonia: did not get better on Zithromax as outpatient will give 5 days of Levaquin (4) Dehydration: NSS at 80cc/hr History of Present Illness Chief Complaint: I've been coughing a lot Primary Care Provider: Carrillo Agrawal MD 68 yo female with history of colon cancer, s/p colectomy and chemotherapy as well as history of breast cancer s/p lumpectomy and currently on Arimidex, presents to the ED with one week of cough and flu like symptoms. The patient was visiting [facility] one week ago. She started to develop chills, muscle aches , poor appetite and cough last Friday. She traveled by plane back to [place] on Friday. She said it was a terrible trip, she was so tired and so sore when she got home that she fell asleep instantly. She went to [facility] the next day and she says that they did a flu swab and it was negative. She was told she had pneumonia and give a script for Azithromycin. She was told she would feel better over the next 5 days. She continued to feel worse. She has constant aches and pains and no energy. She has experienced chills and sweats. She started to have a harsh cough, non-productive, and shortness of breath. She came to the ED today because it was the last day of Zithromax and she is feeling worse. Work up in the ED showed normal CBC, BMP, liver profile, coags. D dimer was < 400. BNP was normal at 30. Influenza A was postive, B was negative. CXR showed possible pulmonary congestion and developing edema. CTA chest negative for PE, no infiltrate, there was inflammation of bronchioles consistent with acute infectious process. Patient does not smoke. Occasional alcohol. No significant family history. Allergies Allergy/AdvReac Type Severity Reaction Status Date / Time adhesive Allergy Unknown REDNESS Verified 10/04/18 12:34 WITH TAPE Home Medications Home Medications Medication Instructions Recorded Confirmed Type niacinamide 500 mg tablet 500 mg PO DAILY 09/09/18 10/04/18 History pantoprazole 40 mg tablet,delayed 40 mg PO DAILY 09/09/18 10/04/18 History release anastrozole 1 mg PO DAILY 10/04/18 10/04/18 History calcium carbonate-vitamin D3 2 tabs PO DAILY 10/04/18 10/04/18 History [Calcium 600 + D(3)] escitalopram oxalate 20 mg PO DAILY 10/04/18 10/04/18 History Past Med/Surg History Medical History DVT of upper extremity (deep vein thrombosis) (Acute) History of colon cancer (Resolved) Hx of breast cancer (Resolved) Surgical History History of lumpectomy of left breast History of partial colectomy Family History Other Family history non-contributory HTN (hypertension) Social History Current Living Situation: Spouse and Family Feels Safe at Home: Yes Safety Concerns: Feels Safe At This Time Smoking Status: Never smoker Hx Alcohol Use: Yes Alcohol Intake Frequency: a few times a month Hx Substance Use: No Beliefs That Will Affect Care: None Preferred Language: Martiniquais Communication Ability: Effective Floor Coverings Installer Required: Yes Review of Systems All systems reviewed & are unremarkable except as noted in HPI & below Constitutional: + fever, + chills, + sweats, + body aches, + fatigue, + malaise and + weakness Respiratory: + cough, + chest congestion, + dyspnea and + wheezing; no hemoptysis Cardiovascular: no chest pain, no syncope and no edema Gastrointestinal: + nausea; no abdominal pain, no vomiting, no constipation and no diarrhea/loose stools Physical Exam 2 Vital Signs (Past 24 Hours): Last Vital Signs Temp 36.7 C 10/04/18 11:55 Pulse 120 H 10/04/18 15:30 Resp 26 H 10/04/18 15:30 BP 117/65 10/04/18 15:30 Pulse Ox 91 10/04/18 15:30 Constitutional: WD/WN, vitals as above + ill appearing; no acute distress and + not appropriately hydrated Eyes: PERRL, conjunctivae normal, anicteric sclerae ENMT: external ear and nose normal, oropharynx normal Neck: trachea midline, no thyromegaly Respiratory: normal respiratory effort; no respiratory distress Auscultation: + diminished lung sounds and + rhonchi; no crackles, no rales and no wheezes Cardiovascular: Rate/Rhythm: regular rhythm and + tachycardic Heart Sounds : normal S1 and normal S2; no murmur Vessels: normal peripheral pulses Extremities: normal capillary refill; no calf tenderness and no pedal edema Gastrointestinal (Abdomen): normal bowel sounds, soft, nontender, no hepatosplenomegaly Musculoskeletal: no cyanosis or clubbing, extremities motor strength 5/5 Skin: no rashes, warm and dry Neurologic: patellar DTR's 2+ bilat, sensation intact and PERRL, EOMI, accommodation nl, no face palsy, no dysarthria Psychiatric: A+Ox3, euthymic affect Lymphatic: no cervical or axillary lymphadenopathy Results & Data Laboratory Results Laboratory Results - last 24 hr 10/04/18 10/04/18 10/04/18 12:14 12:14 12:14 WBC 5.15 RBC 4.96 Hgb 14.6 Hct 43.4 MCV 87.5 MCH 29.4 MCHC 33.6 RDW Std Deviation 40.6 RDW Coeff of Donna 12.8 Plt Count 230 MPV 10.5 H Immature Gran % (Auto) 0.2 Neut % (Auto) 40.3 Lymph % (Auto) 41.0 [place] % (Auto) 10.5 Eos % (Auto) 7.4 Baso % (Auto) 0.6 Immature Gran # (Auto) 0.01 Neut # (Auto) 2.08 Lymph # (Auto) 2.11 [place] # (Auto) 0.54 Eos # (Auto) 0.38 Baso # (Auto) 0.03 PT 10.1 INR 1.0 APTT 25.4 PTT Ratio 0.9 D-Dimer 350 ABG pH ABG pCO2 ABG pO2 ABG HCO3 ABG O2 Saturation ABG Base Excess Robe Test Barometric Pressure Oxygen Given Sodium 138 Potassium 3.8 Chloride 103 Carbon Dioxide 25 Anion Gap 10.0 BUN 12 Creatinine 0.78 Est Cr Clr Drug Dosing 76.9 Est GFR ( Amer) 91.2 Est GFR (Non-Af Amer) 78.7 BUN/Creatinine Ratio 15.3 Glucose 194 H Calcium 9.0 Total Bilirubin 0.4 AST 24 ALT 48 Alkaline Phosphatase 85 Troponin I < 0.015 NT-Pro-B Natriuret Pep Total Protein 7.8 Albumin 4.0 Globulin 3.8 Albumin/Globulin Ratio 1.1 Influenza Type A (PCR) Influenza Type B (PCR) 10/04/18 10/04/18 10/04/18 12:14 13:12 15:24 WBC RBC Hgb Hct MCV MCH MCHC RDW Std Deviation RDW Coeff of Donna Plt Count MPV Immature Gran % (Auto) Neut % (Auto) Lymph % (Auto) [place] % (Auto) Eos % (Auto) Baso % (Auto) Immature Gran # (Auto) Neut # (Auto) Lymph # (Auto) [place] # (Auto) Eos # (Auto) Baso # (Auto) PT INR APTT PTT Ratio D-Dimer ABG pH 7.39 ABG pCO2 36 ABG pO2 82 ABG HCO3 21 ABG O2 Saturation 96.3 H ABG Base Excess -3.0 Robe Test Pos Barometric Pressure 716.7 Oxygen Given 3 L Sodium Potassium Chloride Carbon Dioxide Anion Gap BUN Creatinine Est Cr Clr Drug Dosing Est GFR ( Amer) Est GFR (Non-Af Amer) BUN/Creatinine Ratio Glucose Calcium Total Bilirubin AST ALT Alkaline Phosphatase Troponin I NT-Pro-B Natriuret Pep 31 Total Protein Albumin Globulin Albumin/Globulin Ratio Influenza Type A (PCR) Pos for Influ A A* Influenza Type B (PCR) Neg for Influ B Diagnostic Findings CTA chest IMPRESSION: 1. Allowing for suboptimal image quality, no evidence of pulmonary embolus. 2. Extensive mosaic attenuation and bronchial wall thickening may suggest reactive airways or small airways disease. 3. Subsolid 6 mm nodule in the right upper lobe. Follow-up per Fleischner Society 2017 recommendations below. This was not present on prior exam. 4. Findings may suggest pulmonary arterial hypertension and volume overload. Chest x-ray IMPRESSION: 1. Mild cardiomegaly with volume overload/congestive change. Developing pulmonary edema not excluded. 2. Stable left midlung nodule. Code Status & VTE Plan Code Status full code VTE Prophylaxis Plan VTE Prophylaxis will be ordered: Yes
--- NOTE | 2018-10-04 19:05 | Emergency Department Note ---
Entered by Letha Chery acting as a scribe for History of Present Illness General Chief complaint: Arrhythmia/Palpitations Stated complaint: [facility] PNEUMONIA BREATHING STILL A PROBLEM Time Seen by Provider: 10/04/18 12:20 Source: patient History of Present Illness Onset (ago): day(s) 5 Location: chest Pain Consistency: + other (worsening) Maximum Pain Intensity: 0 Quality: + other (SOB) Associated symptoms: + cough (dry ) and + other (Positive fatigue) The patient is a 68 year old white female w/ PMHx of DVTs, colon cancer, breast cancer who presents to the ED w/ CC of SOB beginning 5 days. She reports she began getting sick 5 days ago after traveling home from [place]. She states she went to [facility] who gave her a Zpack and she was flu negative but positive for pneumonia. Since then, her SOB has worsened, she has a dry cough, and feels fatigued. Her last chemo treatment was before [facility]. Home Medications Home Medications Medication Instructions Recorded Confirmed Type niacinamide 500 mg tablet 500 mg PO DAILY 09/09/18 10/04/18 History pantoprazole 40 mg tablet,delayed 40 mg PO DAILY 09/09/18 10/04/18 History release anastrozole 1 mg PO DAILY 10/04/18 10/04/18 History calcium carbonate-vitamin D3 2 tabs PO DAILY 10/04/18 10/04/18 History [Calcium 600 + D(3)] escitalopram oxalate 20 mg PO DAILY 10/04/18 10/04/18 History Allergies Allergy/AdvReac Type Severity Reaction Status Date / Time adhesive Allergy Unknown REDNESS Verified 10/04/18 12:34 WITH TAPE Past Med/Surg History Medical History DVT of upper extremity (deep vein thrombosis) (Acute) History of colon cancer (Resolved) Hx of breast cancer (Resolved) Family History Other Family history non-contributory Social History Feels Safe at Home: Yes Smoking Status: Never smoker Beliefs That Will Affect Care: None Review of Systems See HPI for pertinent positives & negatives. and A total of 10 systems reviewed and were otherwise negative Physical Exam Vital Signs Vital Signs - 24 hr 10/04/18 11:55 10/04/18 12:13 10/04/18 12:16 Temperature 36.7 C Temperature Source Oral Sepsis Recent Fever Within 48 Hours No Sepsis New/Unexplained Change in Mental Status No Sepsis Action Taken by Nursing No Action Required Pulse Rate 96 H 81 83 Pulse Rate [Right Finger] Pulse Rate from SpO2 Sensor 83 Pulse Rhythm Regular Respiratory Rate 18 21 19 Respiratory Effort / Characteristics Respiratory Depth Respiratory Pattern Blood Pressure 152/90 H Blood Pressure Mean 110 Pulse Oximetry 97 91 97 Oxygen Delivery Method Room Air Room Air Oxygen Flow Rate 10/04/18 12:18 10/04/18 12:20 10/04/18 12:27 Temperature Temperature Source Sepsis Recent Fever Within 48 Hours Sepsis New/Unexplained Change in Mental Status Sepsis Action Taken by Nursing Pulse Rate 84 97 H Pulse Rate [Right Finger] Pulse Rate from SpO2 Sensor 84 98 H Pulse Rhythm Respiratory Rate 24 13 Respiratory Effort / Characteristics Spontaneous Labored Short of Breath SOB on Exertion Respiratory Depth Deep Respiratory Pattern Regular Blood Pressure 130/83 Blood Pressure Mean 98 Pulse Oximetry 96 97 Oxygen Delivery Method Room Air Oxygen Flow Rate 10/04/18 12:30 10/04/18 12:32 10/04/18 12:40 Temperature Temperature Source Sepsis Recent Fever Within 48 Hours Sepsis New/Unexplained Change in Mental Status Sepsis Action Taken by Nursing Pulse Rate 92 H 106 H 96 H Pulse Rate [Right Finger] Pulse Rate from SpO2 Sensor 93 H 95 H Pulse Rhythm Regular Respiratory Rate 25 H 22 19 Respiratory Effort / Characteristics Respiratory Depth Respiratory Pattern Blood Pressure 139/74 Blood Pressure Mean 95 Pulse Oximetry 94 88 L 99 Oxygen Delivery Method Room Air Oxygen Flow Rate 10/04/18 12:41 10/04/18 12:50 10/04/18 13:00 Temperature Temperature Source Sepsis Recent Fever Within 48 Hours Sepsis New/Unexplained Change in Mental Status Sepsis Action Taken by Nursing Pulse Rate 85 97 H Pulse Rate [Right Finger] 87 Pulse Rate from SpO2 Sensor 82 96 H Pulse Rhythm Respiratory Rate 19 22 19 Respiratory Effort / Characteristics Spontaneous Respiratory Depth Respiratory Pattern Blood Pressure Blood Pressure Mean Pulse Oximetry 93 97 97 Oxygen Delivery Method Room Air Oxygen Flow Rate 10/04/18 13:10 10/04/18 13:20 10/04/18 13:30 Temperature Temperature Source Sepsis Recent Fever Within 48 Hours Sepsis New/Unexplained Change in Mental Status Sepsis Action Taken by Nursing Pulse Rate 98 H 105 H 108 H Pulse Rate [Right Finger] Pulse Rate from SpO2 Sensor 97 H 105 H 108 H Pulse Rhythm Respiratory Rate 28 H 19 23 Respiratory Effort / Characteristics Respiratory Depth Respiratory Pattern Blood Pressure Blood Pressure Mean Pulse Oximetry 97 99 98 Oxygen Delivery Method Oxygen Flow Rate 10/04/18 13:40 10/04/18 13:50 10/04/18 14:00 Temperature Temperature Source Sepsis Recent Fever Within 48 Hours Sepsis New/Unexplained Change in Mental Status Sepsis Action Taken by Nursing Pulse Rate 108 H 110 H 113 H Pulse Rate [Right Finger] Pulse Rate from SpO2 Sensor 108 H 110 H 112 H Pulse Rhythm Respiratory Rate 22 19 19 Respiratory Effort / Characteristics Respiratory Depth Respiratory Pattern Blood Pressure Blood Pressure Mean Pulse Oximetry 98 98 97 Oxygen Delivery Method Oxygen Flow Rate 10/04/18 14:10 10/04/18 14:20 10/04/18 14:30 Temperature Temperature Source Sepsis Recent Fever Within 48 Hours Sepsis New/Unexplained Change in Mental Status Sepsis Action Taken by Nursing Pulse Rate 116 H 120 H 120 H Pulse Rate [Right Finger] Pulse Rate from SpO2 Sensor 118 H 120 H 128 H Pulse Rhythm Respiratory Rate 23 19 24 Respiratory Effort / Characteristics Respiratory Depth Respiratory Pattern Blood Pressure Blood Pressure Mean Pulse Oximetry 98 95 Oxygen Delivery Method Oxygen Flow Rate 10/04/18 14:40 10/04/18 14:50 10/04/18 15:00 Temperature Temperature Source Sepsis Recent Fever Within 48 Hours Sepsis New/Unexplained Change in Mental Status Sepsis Action Taken by Nursing Pulse Rate 118 H 118 H 118 H Pulse Rate [Right Finger] Pulse Rate from SpO2 Sensor 118 H 118 H 118 H Pulse Rhythm Respiratory Rate 20 22 24 Respiratory Effort / Characteristics Respiratory Depth Respiratory Pattern Blood Pressure Blood Pressure Mean Pulse Oximetry 89 L 92 92 Oxygen Delivery Method Oxygen Flow Rate 10/04/18 15:09 10/04/18 15:10 10/04/18 15:20 Temperature Temperature Source Sepsis Recent Fever Within 48 Hours Sepsis New/Unexplained Change in Mental Status Sepsis Action Taken by Nursing Pulse Rate 120 H 119 H 133 H Pulse Rate [Right Finger] Pulse Rate from SpO2 Sensor 120 H 120 H 132 H Pulse Rhythm Respiratory Rate 26 H 24 21 Respiratory Effort / Characteristics Respiratory Depth Respiratory Pattern Blood Pressure 127/73 Blood Pressure Mean 91 Pulse Oximetry 90 94 95 Oxygen Delivery Method Oxygen Flow Rate 10/04/18 15:30 10/04/18 18:20 Temperature Temperature Source Sepsis Recent Fever Within 48 Hours Sepsis New/Unexplained Change in Mental Status Sepsis Action Taken by Nursing Pulse Rate 120 H Pulse Rate [Right Finger] Pulse Rate from SpO2 Sensor 121 H Pulse Rhythm Respiratory Rate 26 H Respiratory Effort / Characteristics Respiratory Depth Respiratory Pattern Blood Pressure 117/65 Blood Pressure Mean 82 Pulse Oximetry 91 Oxygen Delivery Method Nasal Cannula Oxygen Flow Rate 3 GENERAL: Mild respiratory distress. EYE EXAM: Normal conjunctiva. PERRL, no anisocoria and EOM's grossly intact w/o pain OROPHARYNX: Moist MM. NECK: Supple, no nuchal rigidity, no adenopathy, non-tender. No signs of meningismus LUNGS: Normal chest wall mechanics. Diffuse wheezing throughout. HEART: NSR, no MRG ABDOMEN: Abdomen soft, non-tender, normo-active bowel sounds, no masses, no rebound or guarding. BACK: No CVA TTP SKIN: No rashes and no bruising. UPPER EXTREMITIES: Upper extremities are grossly normal. LOWER EXTREMITIES: No pitting edema. No calf pain. Negative Homans sign NEURO EXAM: A and O x3. GCS 15. Course 1222: Past medical records reviewed. The patient was evaluated in room C12, and a complete history and physical examination were performed. 1628: I reviewed the patient's case with Dr. [place], [facility] [place]. He will evaluate the patient for further management. Consultations Consultation #1: I reviewed the patient's case with Dr. [place] [facility] [place]. He will evaluate the patient for further management. Time: 16:28 Administered Medications Discontinued Medications Acetaminophen (Tylenol) 1,000 mg PO NOW STA Stop: 10/04/18 13:00 Last Admin: 10/04/18 13:18 Dose: 1,000 mg Albuterol (Duoneb) Confirm Administered Dose 3 ml .ROUTE .STK-MED ONE Stop: 10/04/18 12:10 Last Admin: 10/04/18 12:12 Dose: 3 ml Albuterol (Duoneb) 3 ml INH NOW STA Stop: 10/04/18 12:14 Last Admin: 10/04/18 12:21 Dose: Not Given Albuterol (Duoneb) 12 ml INH ONE STA Stop: 10/04/18 12:28 Last Admin: 10/04/18 12:41 Dose: 12 ml Benzonatate (Tessalon Perle) 100 mg PO NOW ONE Stop: 10/04/18 13:33 Last Admin: 10/04/18 15:06 Dose: 100 mg Doxycycline Hyclate (Vibramycin) 100 mg PO NOW STA Stop: 10/04/18 14:05 Last Admin: 10/04/18 15:06 Dose: 100 mg Ceftriaxone Sodium (Rocephin) 1,000 mg in 50 mls @ 100 mls/hr IV NOW STA Stop: 10/04/18 12:56 Last Infusion: 10/04/18 13:00 Dose: 0 mls/hr Admin: 10/04/18 12:30 Dose: 100 mls/hr Magnesium Sulfate/Dextrose (Magnesium Sulfate / D5w) 1 gm in 100 mls @ 100 mls/ hr IV Q1H MELVA Stop: 10/04/18 14:29 Last Admin: 10/04/18 14:46 Dose: 100 mls/hr Infusion: 10/04/18 14:46 Dose: 0 mls/hr Admin: 10/04/18 12:48 Dose: 100 mls/hr Sodium Chloride (Nss 1000ml) 1,000 mls @ 999 mls/hr IV .Q1H1M MELVA Stop: 10/04/18 13:30 Last Infusion: 10/04/18 14:47 Dose: 0 mls/hr Admin: 10/04/18 12:30 Dose: 999 mls/hr Ceftriaxone Sodium (Rocephin) 1,000 mg in 50 mls @ 100 mls/hr IV NOW STA Stop: 10/04/18 14:33 Last Admin: 10/04/18 15:25 Dose: Not Given Ioversol (Optiray 320 125ml) 97 ml IV ONCE PRN PRN Reason: Interaction Checking Stop: 10/08/18 15:45 Last Admin: 10/04/18 15:47 Dose: 97 ml Ketorolac Tromethamine (Toradol) 30 mg IV NOW STA Stop: 10/04/18 13:00 Last Admin: 10/04/18 13:17 Dose: 30 mg Methylprednisolone (Solumedrol) 125 mg IV NOW STA Stop: 10/04/18 12:28 Last Admin: 10/04/18 12:49 Dose: 125 mg Medical Decision Making Medical Records Attestation: I reviewed the patient's medical records. Home Medications Current Medication List: was personally reviewed by me Laboratory Data Attestation: I reviewed the patient's lab results. Result diagrams: 10/04/18 12:14 10/04/18 12:14 Lab Results 10/04/18 10/04/18 10/04/18 Range/Units 12:14 12:14 12:14 WBC 5.15 (4.8-10.8) K/uL RBC 4.96 (4.2-5.4) M/uL Hgb 14.6 (12.0-16.0) g/dL Hct 43.4 (37-47) % MCV 87.5 (80-100) fL MCH 29.4 (25-34) pg MCHC 33.6 (32-36) g/dL RDW Std Deviation 40.6 (36.4-46.3) fL RDW Coeff of Donna 12.8 (11.5-14.5) % Plt Count 230 (130-400) K/uL MPV 10.5 H (7.4-10.4) fL Immature Gran % (Auto) 0.2 % Neut % (Auto) 40.3 % Lymph % (Auto) 41.0 % Story % (Auto) 10.5 % Eos % (Auto) 7.4 % Baso % (Auto) 0.6 % Immature Gran # (Auto) 0.01 (0.00-0.02) K/uL Neut # (Auto) 2.08 (1.4-6.5) K/uL Lymph # (Auto) 2.11 (1.2-3.4) K/uL Story # (Auto) 0.54 (0.11-0.59) K/uL Eos # (Auto) 0.38 (0-0.5) K/uL Baso # (Auto) 0.03 (0-0.2) K/uL PT 10.1 (9.0-12.0) Seconds INR 1.0 (0.9-1.1) APTT 25.4 (21.0-31.0) Seconds PTT Ratio 0.9 D-Dimer 350 (0-500) ug/L FEU ABG pH (7.35-7.45) ABG pCO2 (35-46) mmHg ABG pO2 (80-95) mm/Hg ABG HCO3 (19-24) mmol/L ABG O2 Saturation (90-95) % ABG Base Excess (-9-1.8) mEq/L Robe Test (Pos) Barometric Pressure mm/Hg Oxygen Given Sodium 138 (136-145) mmol/L Potassium 3.8 (3.5-5.1) mmol/L Chloride 103 (98-107) mmol/L Carbon Dioxide 25 (21-32) mmol/L Anion Gap 10.0 (3-11) BUN 12 (7-18) mg/dl Creatinine 0.78 (0.6-1.2) mg/dl Est Cr Clr Drug Dosing 76.9 ml/min Est GFR ( Amer) 91.2 Est GFR (Non-Af Amer) 78.7 BUN/Creatinine Ratio 15.3 (10-20) Glucose 194 H (70-99) mg/dl Calcium 9.0 (8.5-10.1) mg/dl Total Bilirubin 0.4 (0.2-1) mg/dl AST 24 (15-37) U/L ALT 48 (12-78) U/L Alkaline Phosphatase 85 (45-117) U/L Troponin I < 0.015 (0-0.045) ng/ml NT-Pro-B Natriuret Pep (0-900) pg/ml Total Protein 7.8 (6.4-8.2) gm/dl Albumin 4.0 (3.4-5.0) gm/dl Globulin 3.8 (2.5-4.0) gm/dl Albumin/Globulin Ratio 1.1 (0.9-2) Influenza Type A (PCR) (Neg) Influenza Type B (PCR) (Neg) 10/04/18 10/04/18 10/04/18 Range/Units 12:14 13:12 15:24 WBC (4.8-10.8) K/uL RBC (4.2-5.4) M/uL Hgb (12.0-16.0) g/dL Hct (37-47) % MCV (80-100) fL MCH (25-34) pg MCHC (32-36) g/dL RDW Std Deviation (36.4-46.3) fL RDW Coeff of Donna (11.5-14.5) % Plt Count (130-400) K/uL MPV (7.4-10.4) fL Immature Gran % (Auto) % Neut % (Auto) % Lymph % (Auto) % Story % (Auto) % Eos % (Auto) % Baso % (Auto) % Immature Gran # (Auto) (0.00-0.02) K/uL Neut # (Auto) (1.4-6.5) K/uL Lymph # (Auto) (1.2-3.4) K/uL Story # (Auto) (0.11-0.59) K/uL Eos # (Auto) (0-0.5) K/uL Baso # (Auto) (0-0.2) K/uL PT (9.0-12.0) Seconds INR (0.9-1.1) APTT (21.0-31.0) Seconds PTT Ratio D-Dimer (0-500) ug/L FEU ABG pH 7.39 (7.35-7.45) ABG pCO2 36 (35-46) mmHg ABG pO2 82 (80-95) mm/Hg ABG HCO3 21 (19-24) mmol/L ABG O2 Saturation 96.3 H (90-95) % ABG Base Excess -3.0 (-9-1.8) mEq/L Robe Test Pos (Pos) Barometric Pressure 716.7 mm/Hg Oxygen Given 3 L Sodium (136-145) mmol/L Potassium (3.5-5.1) mmol/L Chloride (98-107) mmol/L Carbon Dioxide (21-32) mmol/L Anion Gap (3-11) BUN (7-18) mg/dl Creatinine (0.6-1.2) mg/dl Est Cr Clr Drug Dosing ml/min Est GFR ( Amer) Est GFR (Non-Af Amer) BUN/Creatinine Ratio (10-20) Glucose (70-99) mg/dl Calcium (8.5-10.1) mg/dl Total Bilirubin (0.2-1) mg/dl AST (15-37) U/L ALT (12-78) U/L Alkaline Phosphatase (45-117) U/L Troponin I (0-0.045) ng/ml NT-Pro-B Natriuret Pep 31 (0-900) pg/ml Total Protein (6.4-8.2) gm/dl Albumin (3.4-5.0) gm/dl Globulin (2.5-4.0) gm/dl Albumin/Globulin Ratio (0.9-2) Influenza Type A (PCR) Pos for Influ A A* (Neg) Influenza Type B (PCR) Neg for Influ B (Neg) Imaging Data Radiologist's Impression: Radiology results as stated below per my review and the radiologist's interpretation: XR chest 1V portable CLINICAL HISTORY: 68 years-old Female presenting with Shortness of breath. TECHNIQUE: Portable upright AP view of the chest was obtained. COMPARISON: 02/10/2018. FINDINGS: Cardiac silhouette mildly enlarged. Pulmonary basilar prominence. Persistent nodule in the left midlung now subcentimeter in apparent size. Hazy bibasilar opacity. Bronchial wall cuffing suggested. No large effusion or pneumothorax. Degenerative changes of the thoracic spine. Upper abdomen normal. IMPRESSION: 1. Mild cardiomegaly with volume overload/congestive change. Developing pulmonary edema not excluded. 2. Stable left midlung nodule. Electronically signed by: Carrillo Fletcher M.D. 10/04/2018 1:[address] angio chest PE protocol CLINICAL HISTORY: 68 years-old Female presenting with shortness of breath, clinical concern for pulmonary bolus. TECHNIQUE: Multidetector CT angiography of the chest was performed after administration of intravenous contrast. 3-D volumetric and/or maximum intensity projection (MIP) images were subsequently reconstructed for review. IV contrast : 97 mL of Optiray 320. One or more dose lowering techniques were used consistent with the principles of ALARA (as low as reasonably achievable), including automatic exposure control, mA or kV adjustment to individual patient size, and/or use of iterative reconstruction. COMPARISON: Contrast-enhanced CT chest from 01/23/2018. CT DOSE (mGy.cm): The estimated cumulative dose is 624.36 mGy.cm. FINDINGS: [employer] topogram: Unremarkable. Pulmonary vasculature: The study is suboptimal for the assessment of the pulmonary vascular tree secondary to timing of the contrast bolus and respiratory motion artifact. Allowing for limited image quality, no central filling defect to suggest pulmonary embolus. Main pulmonary artery mildly enlarged measuring 3.5 cm in diameter. No flattening of the interventricular septum. No intracardiac filling defect. No reflux of contrast into the hepatic veins. Remaining chest: Soft tissues: Normal thyroid. Surgical clips noted in the superior left breast with associated fluid collection and fat necrosis as well as associated left breast skin thickening. This is consistent with lumpectomy and post radiation change. Fat necrosis also evident in the lateral left breast. No axillary, supraclavicular, internal mammary, mediastinal, or hilar lymphadenopathy. Subcentimeter nonspecific precarinal and pretracheal lymph nodes. Atherosclerosis of the aorta. Normal heart size. No pericardial or pleural effusion. Upper abdomen normal. Lungs and airways: No pneumothorax. Central airways patent. Mild diffuse bronchial wall thickening with a lower lobe predominance. Extensive mosaic attenuation. Pulmonary arteries may be mildly enlarged relative to adjacent bronchi. Subsolid 6 mm nodule in the anterior right upper lobe (series 4 image 179), new from prior. Dependent groundglass and reticular opacities at the lung bases likely atelectasis. Musculoskeletal: Degenerative changes of the spine. IMPRESSION: 1. Allowing for suboptimal image quality, no evidence of pulmonary embolus. 2. Extensive mosaic attenuation and bronchial wall thickening may suggest reactive airways or small airways disease. 3. Subsolid 6 mm nodule in the right upper lobe. Follow-up per Fleischner Society 2017 recommendations below. This was not present on prior exam. 4. Findings may suggest pulmonary arterial hypertension and volume overload. 5. Postsurgical and posttreatment changes of the left breast. Summary of Fleischner Society 2017 Recommendations (H Huy et al. Guidelines for management of incidental pulmonary nodules detected on CT images : From the Fleischner Society 2017. Radiology 2017; 284: 228-243.) SOLID NODULES Single nodule; size < 6 mm * Low risk patients: No routine follow-up * High risk patients: Optional CT at 12 months Single nodule; size 6-8 mm * Low risk patients: CT at 6-12 months, then consider CT at 18-24 months * High risk patients: CT at 6-12 months, then at 18-24 months Single nodule; size > 8 mm * Either low or high risk patients: Considered CT at 3 months, PET/CT, or tissue sampling Multiple nodules; size < 6 mm * Low risk patients: No routine follow up * High risk patients: Optional CT at 12 months Multiple nodules; size 6-8 mm * Low risk patients: CT at 3-6 months, then consider CT at 18-24 months * High risk patients: CT at 3-6 months, then at 18-24 months Multiple nodules; size > 8 mm * Low risk patients: CT at 3-6 months, then consider at 18-24 months * High risk patients: CT at 3-6 months, then at 18-24 months SUBSOLID NODULES Single ground-glass nodule * Nodule size < 6 mm: No routine follow-up * Nodule size > or = 6 mm: CT at 6-12 months to confirm persistence, then CT every 2 years until 5 years Single part-solid nodule * Nodule size < 6 mm: No routine follow-up * Nodules size > or = 6 mm: CT at 3-6 months to confirm persistence. If unchanged and solid component remains < 6 mm, annual CT should be performed for 5 years Multiple nodules * Nodule size < 6 mm: CT at 3-6 months. If stable, consider CT at 2 and 4 years. * Nodules size > or = 6 mm: CT at 3-6 months. Subsequent management based on the most suspicious nodule(s) NOTE: 1) These guidelines apply to incidental nodules. These guidelines do NOT apply to patients younger than 35 years, immunocompromised patients, or patients with cancer. 2) Risk categories: * Low risk patients: Minimal or absent history of smoking and/or other known risk factors * High risk patients: History of smoking, exposure to other carcinogens, emphysema, fibrosis, upper lobe location, family history of lung cancer, etc. 3) If a nodule up to 8 mm is partly solid or is ground glass, further follow-up is required after 24 months to exclude possible slow growing adenocarcinoma. Electronically signed by: Carrillo Fletcher M.D. 10/04/2018 3:57 PM ECG Data Attestation: I personally reviewed and interpreted this ECG as follows: Indication: SOB/dyspnea Rate (beats per minute): 86 Rhythm: normal sinus Findings: no PAC, no PVC, no ST depression, no ST elevation and no acute ischemic change Blood Pressure Blood Pressure Findings: Elevated blood pressure Blood Pressure Disposition: elevated BP felt to be situational MDM Narrative Prior records/ancillary studies reviewed. Triage nursing notes reviewed. The patient is a 68 year old white female w/ PMHx of DVTs, colon cancer, breast cancer who presents to the ED w/ CC of SOB beginning 5 days. Differential diagnosis: Etiologies such as infections, reactive airway disease, pneumonia, pneumothorax , COPD, CHF, cardiac ischemia, pulmonary embolism, musculoskeletal, gastrointestinal, as well as others were entertained. Patient was seen and evaluated the bedside. The patient related that she has been having some infectious symptoms with some associated primarily nonproductive cough but occasionally with some yellow tinged sputum. Patient does relate that she recently did travel from [place] via plane within the last week. The patient does not have any lower extremity swelling or calf pain. Patient did have a prior history of a DVT which was provoked secondary to foot surgery approximately 6 years ago. On exam the patient does have diffuse wheezing both inspiratory and expiratory throughout the lung urbina. Patient did a blood work completed along with EKG troponin d-dimer chest x-ray and was given DuoNeb treatments, Solu-Medrol, mag, and IV fluids. Patient's blood work is very unremarkable. The patient had an undetectable troponin and d-dimer was not elevated. Patient's chest x-ray did show questionable congestive change. Patient has a normal white count H&H. The patient was given both Rocephin and doxycycline in the attempts that if the patient improves she might be an outpatient candidate for antibiotics. The patient was flu positive. The patient has had symptoms for greater than 48 hours of Tamiflu was not given at this time. Given the patient's requirement for supplemental oxygen a CT angios was obtained. This was somewhat a technically difficult study but there is no evidence of PE. Patient does have a right upper lobe pulmonary nodule that was 6 mm. Was likely change consistent with air or reactive airway disease. There was also may become change of some pulmonary hypertension. I did speak with the on-call hospitalist given the patient's reactive airway disease associated possible infectious process as well as positive flu and the fact that the patient was requiring supplemental oxygen. Patient was to be seen and evaluated by hospitalist. Patient was admitted to the medicine service. Impression & Plan Bronchitis, Influenza, Acute respiratory failure with hypoxia Critical Care Time I have personally spent greater than 45 minutes of critical care time in the direct management of this patient. This includes bedside care, interpretation of diagnostic studies, and testing, discussion with consultants, patient, and family members, and other required patient management activities. This 45 minutes is in excess of all separately billable procedures. Critical Care Time: Yes Total Critical Care Time: 45 Discharge Plan Visit Data Chief Complaint: Arrhythmia/Palpitations Stated Complaint: [facility] PNEUMONIA BREATHING STILL A PROBLEM ED Provider: Umesh Wood Discharge Problem: Bronchitis, Influenza, Acute respiratory failure with hypoxia Patient Disposition: Being Evaluated by Hospitalist Discharge Instructions Interventions: ED Discharge Assessment Last Done: 10/04/18 18:20 The scribe's documentation has been prepared under my direction and personally reviewed by me in its entirety. I confirm that the note above accurately reflects all work, treatment, procedures, and medical decision making performed by me.
[2018-10-04] MEDS: OSELTAMIVIR PHOSPHATE 75 MG CAP PO SCH (20:58)
[2018-10-04] MEDS: ENOXAPARIN INJ 40 MG/0.4 ML SYR SQ SCH (21:00)
[2018-10-04] MEDS: methylPREDNISolone 40 MG in SYRINGE 0 ML IV SCH (23:56)
[2018-10-05] MEDS ORDERED: SODIUM CHLORIDE 0.9% 1000ML 1,000 ML IV SCH (07:00)
[2018-10-05] MEDS: OSELTAMIVIR PHOSPHATE 75 MG CAP PO SCH ×2 (07:49→21:21)
[2018-10-05] MEDS: ESCITALOPRAM OXALATE 20 MG TAB PO SCH (07:49)
[2018-10-05] MEDS: CALCIUM 600MG + VIT D 400 IU TAB PO SCH ×2 (07:49→21:21)
[2018-10-05] MEDS: PANTOprazole 40 MG TAB PO SCH (07:50)
[2018-10-05] MEDS: NIACIN 500 MG TAB PO SCH (07:50)
[2018-10-05] MEDS: ANASTROZOLE 1 MG TAB PO SCH (07:50)
[2018-10-05 08:22] LABS: Hematocrit (blood only) 39.6 % (37-47); Hemoglobin 13.2 g/dL (12.0-16.0); Immature Granulocytes # (auto) 0.02 K/uL (0.00-0.02); Immature Granulocytes % (auto) 0.2 %; Lymphocytes # (auto) 1.24 K/uL (1.2-3.4); Lymphocytes % (auto) 13.9 %; Mean Corpuscular Hgb Conc 33.3 g/dL (32-36); Mean Corpuscular Volume 86.8 fL (80-100); Monocytes # (auto) 0.59 K/uL (0.11-0.59); Monocytes % (auto) 6.6 %; Neutrophils # (auto) 7.06 K/uL (1.4-6.5); Neutrophils % (auto) 79.3 %; Platelet Count 216 K/uL (130-400); RDW Coefficient of Variation 12.9 % (11.5-14.5); RDW Standard Deviation 40.9 fL (36.4-46.3); Red Blood Count 4.56 M/uL (4.2-5.4); White Blood Count 8.91 K/uL (4.8-10.8)
[2018-10-05] MEDS ORDERED: DiphenhydrAMINE HCL 50 MG/ML VIAL IV STA (08:35)
[2018-10-05] MEDS ORDERED: FAMOTIDINE 20MG/5ML IV PUSH IV STA (08:35)
[2018-10-05] MEDS ORDERED: FAMOTIDINE 20 MG in SYRINGE 3 ML IV ONE (08:45)
[2018-10-05 09:01] LABS: BUN Creatinine Ratio 17.2 (10-20); Calcium 9.3 mg/dl (8.5-10.1); Creatinine Clr Calc Pharmacy 70.2 ml/min; Est GFR (Non-African American) 69.9; Potassium 4.4 mmol/L (3.5-5.1)
[2018-10-05] MEDS: levoFLOXacin 750 MG TAB PO SCH (11:04)
[2018-10-05] MEDS: methylPREDNISolone 40 MG in SYRINGE 0 ML IV SCH ×2 (11:05→23:21)
[2018-10-05] MEDS: ALBUT/IPRATROP 3MG/0.5MG NEB 3 ML VIAL NEB PRN ×2 (11:07→16:56)
--- NOTE | 2018-10-05 17:19 | Hospitalist Progress Note ---
Date of Service October 05, 2018 Assessment & Plan (1) Influenza: was negative 5 days prior to admission, likely a false negative at this point it is well out from 48 hours from onset of symptoms however, will treat with Tamiflu to make her less contagious and because she has some respiratory failure Tamiflu BID, today is day 2 (2) Acute respiratory failure with hypoxia: due to Flu A and bronchial pneumonia treat with Tamiflu, nebulizers, Levaquin some improvement in breathing today, cough is still harsh but patient says it is breaking up 24 hours after admission, patient says she feels a lot better (3) Bronchial pneumonia: did not get better on Zithromax as outpatient will give 5 days of Levaquin, today is day 2 afebrile, WBC normal (4) Dehydration: resolved, stop fluids today (5) Drug rash: diffuse red flat rash, resolved quickly even prior to Benadryl and Pepcid watch to see if it returns only new medications are Tamiflu and Levaquin Subjective called to patient's room for feeling flushed and diffuse itching, warm rash that started on the top of her head it then spread to her back and chest and then her limbs at the time of my arrival it was getting better, this was prior to any Benadryl or Pepcid she had received Solu Medrol in the morning vitals had improved, eating well feels like her cough is loosening up, still having tough time bringing up mucous labs reviewed, BMP and CBC normal Review of Systems All systems reviewed & are unremarkable except as noted in HPI & below Respiratory: + cough, + chest congestion, + dyspnea on exertion and + pain with cough; no sputum production Integumentary: + rash (red, flat, diffuse but resolved) Physical Exam 2 Vital Signs (Past 24 Hours): Last Vital Signs Temp 37.3 C 10/05/18 15:30 Pulse 74 10/05/18 16:57 Resp 16 10/05/18 16:57 BP 129/80 10/05/18 15:30 Pulse Ox 98 10/05/18 16:57 Constitutional: WD/WN, vitals as above no acute distress Eyes: PERRL, conjunctivae normal, anicteric sclerae ENMT: external ear and nose normal, oropharynx normal Neck: trachea midline, no thyromegaly Respiratory: normal respiratory effort; no respiratory distress Auscultation: + diminished lung sounds; no crackles, no rales and no wheezes Cardiovascular: Rate/Rhythm: regular rhythm and + tachycardic Heart Sounds : normal S1 and normal S2; no murmur Vessels: normal peripheral pulses Extremities: normal capillary refill; no calf tenderness and no pedal edema Gastrointestinal (Abdomen): normal bowel sounds, soft, nontender, no hepatosplenomegaly Musculoskeletal: no cyanosis or clubbing, extremities motor strength 5/5 Skin: + rash (diffuse, red, already improving, seen on face, chest, back, legs ) Neurologic: patellar DTR's 2+ bilat, sensation intact and PERRL, EOMI, accommodation nl, no face palsy, no dysarthria Psychiatric: A+Ox3, euthymic affect Lymphatic: no cervical or axillary lymphadenopathy Results & Data Laboratory Results Laboratory Results - last 24 hr 10/05/18 10/05/18 10/05/18 08:06 08:06 08:39 WBC 8.91 RBC 4.56 Hgb 13.2 Hct 39.6 MCV 86.8 MCH 28.9 MCHC 33.3 RDW Std Deviation 40.9 RDW Coeff of Donna 12.9 Plt Count 216 MPV 10.0 Immature Gran % (Auto) 0.2 Neut % (Auto) 79.3 Lymph % (Auto) 13.9 Wirt % (Auto) 6.6 Eos % (Auto) 0.0 Baso % (Auto) 0.0 Immature Gran # (Auto) 0.02 Neut # (Auto) 7.06 H Lymph # (Auto) 1.24 Wirt # (Auto) 0.59 Eos # (Auto) 0.00 Baso # (Auto) 0.00 Sodium 137 Potassium 4.4 D Chloride 104 Carbon Dioxide 23 Anion Gap 9.0 BUN 15 Creatinine 0.86 Est Cr Clr Drug Dosing 70.2 Est GFR ( Amer) 81.0 Est GFR (Non-Af Amer) 69.9 BUN/Creatinine Ratio 17.2 Glucose 200 H POC Glucose 209 H Calcium 9.3 Medications Administered Current Inpatient Medications Acetaminophen (Tylenol) 650 mg PO Q4H PRN PRN Reason: pain/fever Stop: 11/03/18 18:39 Albuterol (Duoneb) 3 ml NEB Q4R PRN PRN Reason: Dyspnea Stop: 11/03/18 18:39 Last Admin: 10/05/18 16:56 Dose: 3 ml Anastrozole (Arimidex) 1 mg PO DAILY MELVA Stop: 11/04/18 08:59 Last Admin: 10/05/18 07:50 Dose: 1 mg Enoxaparin Sodium (Lovenox) 40 mg SQ QPM MELVA Stop: 11/03/18 20:59 Last Admin: 10/05/18 21:21 Dose: Not Given Escitalopram Oxalate (Lexapro) 20 mg PO DAILY MELVA Stop: 11/04/18 08:59 Last Admin: 10/05/18 07:49 Dose: 20 mg Methylprednisolone 40 mg/ (Syringe) 0.64 mls @ 1.5 mls/min IV Q12H MELVA Stop: 11/04/18 00:00 Last Admin: 10/05/18 11:05 Dose: 1.5 mls/min Levofloxacin (Levaquin) 750 mg PO DAILY@1100 MELVA; Protocol Stop: 10/11/18 10:59 Last Admin: 10/05/18 11:04 Dose: 750 mg Multivitamins/Minerals (Caltrate Plus) 1 tab PO BID MELVA Stop: 11/04/18 08:59 Last Admin: 10/05/18 21:21 Dose: 1 tab Niacin (Niacin) 500 mg PO DAILY MELVA Stop: 11/04/18 08:59 Last Admin: 10/05/18 07:50 Dose: 500 mg Ondansetron HCl (Zofran) 4 mg IV Q6H PRN PRN Reason: Nausea Stop: 11/03/18 18:39 Oseltamivir Phosphate (Tamiflu) 75 mg PO BID [facility] Stop: 10/09/18 20:59 Last Admin: 10/05/18 21:21 Dose: 75 mg Pantoprazole Sodium (Protonix) 40 mg PO DAILY MELVA Stop: 11/04/18 08:59 Last Admin: 10/05/18 07:50 Dose: 40 mg Polyethylene Glycol (Miralax Powder Packet) 17 gm PO DAILY PRN PRN Reason: Constipation Stop: 11/03/18 18:39
[2018-10-05] MEDS: ENOXAPARIN INJ 40 MG/0.4 ML SYR SQ SCH (21:21)
[2018-10-06] MEDS: ESCITALOPRAM OXALATE 20 MG TAB PO SCH (07:35)
[2018-10-06] MEDS: ANASTROZOLE 1 MG TAB PO SCH (07:35)
[2018-10-06] MEDS: CALCIUM 600MG + VIT D 400 IU TAB PO SCH (07:35)
[2018-10-06] MEDS: PANTOprazole 40 MG TAB PO SCH (07:35)
[2018-10-06] MEDS: OSELTAMIVIR PHOSPHATE 75 MG CAP PO SCH (07:36)
[2018-10-06] MEDS: NIACIN 500 MG TAB PO SCH (07:37)
[2018-10-06] MEDS: ALBUT/IPRATROP 3MG/0.5MG NEB 3 ML VIAL NEB PRN (10:27)
[2018-10-06] MEDS: methylPREDNISolone 40 MG in SYRINGE 0 ML IV SCH (11:37)
[2018-10-06] MEDS: levoFLOXacin 750 MG TAB PO SCH (11:37)
--- NOTE | 2018-10-06 23:33 | Discharge Summary ---
Date of Service October 06, 2018 Admission HPI Per Admitting Provider 68 yo female with history of colon cancer, s/p colectomy and chemotherapy as well as history of breast cancer s/p lumpectomy and currently on Arimidex, presents to the ED with one week of cough and flu like symptoms. The patient was visiting [facility] one week ago. She started to develop chills, muscle aches , poor appetite and cough last Friday. She traveled by plane back to [place] on Friday. She said it was a terrible trip, she was so tired and so sore when she got home that she fell asleep instantly. She went to [facility] the next day and she says that they did a flu swab and it was negative. She was told she had pneumonia and give a script for Azithromycin. She was told she would feel better over the next 5 days. She continued to feel worse. She has constant aches and pains and no energy. She has experienced chills and sweats. She started to have a harsh cough, non-productive, and shortness of breath. She came to the ED today because it was the last day of Zithromax and she is feeling worse. Work up in the ED showed normal CBC, BMP, liver profile, coags. D dimer was < 400. BNP was normal at 30. Influenza A was postive, B was negative. CXR showed possible pulmonary congestion and developing edema. CTA chest negative for PE, no infiltrate, there was inflammation of bronchioles consistent with acute infectious process. Patient does not smoke. Occasional alcohol. No significant family history. Admission Exam Per Admitting Provider Constitutional: WD/WN, vitals as above + ill appearing; no acute distress and + not appropriately hydrated Eyes: PERRL, conjunctivae normal, anicteric sclerae ENMT: external ear and nose normal, oropharynx normal Neck: trachea midline, no thyromegaly Respiratory: normal respiratory effort; no respiratory distress Auscultation: + diminished lung sounds and + rhonchi; no crackles, no rales and no wheezes Cardiovascular: Rate/Rhythm: regular rhythm and + tachycardic Heart Sounds : normal S1 and normal S2; no murmur Vessels: normal peripheral pulses Extremities: normal capillary refill; no calf tenderness and no pedal edema Gastrointestinal (Abdomen): normal bowel sounds, soft, nontender, no hepatosplenomegaly Musculoskeletal: no cyanosis or clubbing, extremities motor strength 5/5 Skin: no rashes, warm and dry Neurologic: patellar DTR's 2+ bilat, sensation intact and PERRL, EOMI, accommodation nl, no face palsy, no dysarthria Psychiatric: A+Ox3, euthymic affect Lymphatic: no cervical or axillary lymphadenopathy Principal Diagnosis Influenza A causing acute hypoxia Discharge Exam Constitutional WD/WN, vitals as above no acute distress Eyes PERRL, conjunctivae normal, anicteric sclerae ENMT external ear and nose normal, oropharynx normal Neck trachea midline, no thyromegaly Respiratory normal respiratory effort; no respiratory distress Auscultation: no crackles, no rales and no wheezes Cardiovascular Rate/Rhythm: regular rhythm and + tachycardic Heart Sounds: normal S1 and normal S2; no murmur Vessels: normal peripheral pulses Extremities: normal capillary refill; no calf tenderness and no pedal edema Gastrointestinal (Abdomen) normal bowel sounds, soft, nontender, no hepatosplenomegaly Musculoskeletal no cyanosis or clubbing, extremities motor strength 5/5 Skin no rashes, warm and dry Neurologic patellar DTR's 2+ bilat, sensation intact and PERRL, EOMI, accommodation nl, no face palsy, no dysarthria Psychiatric A+Ox3, euthymic affect Lymphatic no cervical or axillary lymphadenopathy Discharge Data Allergies Allergy/AdvReac Type Severity Reaction Status Date / Time adhesive Allergy Unknown REDNESS Verified 10/04/18 12:34 WITH TAPE Ordered Studies 10/04/18 15:02 CT angio chest PE protocol Stat Hospital Course (1) Influenza: was negative 5 days prior to admission, likely a false negative at this point it is well out from 48 hours from onset of symptoms however, will treat with Tamiflu to make her less contagious and because she has some respiratory failure Tamiflu BID, complete 5 more doses after discharge for 5 day course no longer contagious (2) Acute respiratory failure with hypoxia: due to Flu A and bronchial pneumonia treat with Tamiflu, nebulizers, Levaquin responded well, titrated off of oxygen no distress, feeling much better (3) Bronchial pneumonia: did not get better on Zithromax as outpatient will give 5 days of Levaquin, today is day 3, complete 2 more doses at home afebrile, WBC normal cough is a little more productive, she feels like congestion in lungs breaking up (4) Dehydration: resolved, stop fluids 10/05 (5) Drug rash: diffuse red flat rash, resolved quickly even prior to Benadryl and Pepcid after further discussion, determined it was due to Niacin she takes Niacinamide at home but does not get this reaction no further episodes Total Time Total Time Spent Total Time Spent (In Minutes): 40 minutes Total Time Includes: Examination of the Patient, Discharge Planning and Medication Reconciliation Discharge Plan Discharge Items Patient Disposition: Home - Self-Care Reason For Visit: ACUTE HYPOXIA RESPIRATORY FAILURE Discharge Diagnosis: Acute hypoxia, influenza A, bronchial pneumonia Condition: Good Discharge Goals: Improve disease control and Improve function Activity: Resume your previous activity Non-emergency contact: Primary Care Provider Call non-emergency contact if: you have any medication questions, your symptoms worsen and you have a fever Diet: Regular Addtl Provider Instructions: Medications: - LEVAQUIN: 750mg daily for two more days, next dose due tomorrow AM - TAMIFLU: take twice a day for 5 more doses, next dose due this evening - DUONEB: use as needed, will need to purchase nebulizer Acute respiratory failure, bronchial pneumonia, influenza A no further hypoxia complete few more days of Levaquin and Tamiflu use nebulizer as needed clear to travel on Friday FOLLOW UP - PCP when you get back from vacation Prescriptions: New ipratropium-albuterol 0.5 mg-3 mg(2.5 mg base)/3 mL Solution For Nebulization 3 ml NEB Q4R PRN (Reason: shortness of breath or wheezing) 30 Days Qty: 15 RF : 4 oseltamivir [Tamiflu] 75 mg Capsule 75 mg PO BID 2 Days Qty: 5 RF: 0 levofloxacin 750 mg Tablet 750 mg PO DAILY@1100 2 Days Qty: 2 RF: 0 Continue pantoprazole 40 mg tablet,delayed release (DR/EC) 40 mg PO DAILY RF: 0 niacinamide 500 mg tablet 500 mg PO DAILY RF: 0 escitalopram oxalate 20 mg tablet 20 mg PO DAILY RF: 0 anastrozole 1 mg Tablet 1 mg PO DAILY RF: 0 calcium carbonate-vitamin D3 [Calcium 600 + D(3)] 600 mg calcium- 200 unit Capsule 2 tabs PO DAILY RF: 0 Stand-Alone Forms: [facility] Discharge Orders: Discharge Order (Routine); Ordered 10/06/18 Ordered By: Angelo Anderson Admission Data Admit Date/Time: 10/04/18 16:49 Attending Provider: Angelo Anderson Admit Provider: Angelo Anderson Primary Care Provider: Carrillo Agrawal Service: Medical Other Interventions: Discharge Summary Assessment (RN) Last Done: 10/06/18 10:58 DC Date/Time DO NOT enter until pt leaves facility: 10/06/18 12:45
== END 2018-10-06 12:45 | disposition home or self-care (01) | DRG 193 ==
LOC: ED 11:43 → 4E 16:49